=== PATIENT | female | born 1985 | race African-American/Black ===

== ENCOUNTER 2020-09-07 21:22 | Emergency (ER) | payer OTHER, MEDICARE, MEDICAID, SELFPAY ==
--- NOTE | ~2020-09-07 | CT_ITS ---
EXAMINATION: CT abdomen pelvis wo con DATE: 09/08/2020 00:15 INDICATION: Abdominal pain, body aches, cough, 103 degrees fever TECHNIQUE: Computed tomography (CT) of the abdomen and pelvis was performed without intravenous contr ast. Automated exposure control and iterative reconstruction technique were employed. Exam dose: 150 1.22 mGy-cm total exam DLP. COMPARISON: None. FINDINGS: The lung bases are clear of consolidation. Normal heart size. No pericardial or pleural eff usion. There is mild abdominal and pelvic ascites. There is a peritoneal catheter. The liver, gallbladder, bile ducts, spleen, pancreas, pancreatic duct and adrenal glands are unremark able. Diffuse bilateral prominent renal atrophy. No renal mass lesion or urinary tract calculus or hy droureteronephrosis. The uterus and adnexal areas and urinary bladder is unremarkable. No evidence of appendicitis. No bowel obstruction, bowel wall thickening, pneumatosis or intraperiton eal free air. Degenerative changes of the lower thoracic and to a lesser extent lumbar spine. IMPRESSION: Peritoneal catheter presumably for peritoneal dialysis. Mild ascites. Prominent diffuse bilateral renal atrophy Reviewed, dictated and finalized at [facility]. Reviewed, dictated and finalized at [facility]. TER MIRROR IMPRESSION: Peritoneal catheter presumably for peritoneal dialysis. Mild ascit es. Prominent diffuse bilateral renal atrophy
--- NOTE | ~2020-09-07 | XR_ITS ---
EXAMINATION: XR chest 1V portable DATE: 09/07/2020 23:01 INDICATION: Cough and fever. TECHNIQUE: A single frontal view of the chest was obtained. COMPARISON: Chest single view 02/12/2018 FINDINGS: The lung volumes are normal. There are mild airspace opacities in the perihilar regions. No pleural effusion or pneumothorax. The heart size is normal. IMPRESSION: 1. Small lung volumes with mild airspace opacities in the perihilar regions, consistent with atelecta sis versus pneumonia. Reviewed, dictated and finalized at [facility]. SURG RN IMPRESSION: 1. Small lung volumes with mild airspace opacities in the perihilar regions, co nsistent with atelectasis versus pneumonia.
[2020-09-07 21:35] VITALS: BP 168/107; PULSE 98; RESP 20; TEMP 37.3; O2SAT 98
--- NOTE | 2020-09-07 23:38 | ED.GENADULT ---
HPI - General Adult General Chief complaint: Upper Respiratory Infection Stated complaint: chills, body aches, cough Time Seen by Provider: 09/07/20 23:28 Source: RN notes reviewed History of Present Illness HPI narrative: Patient presents to emergency department from home for upper respiratory infection. Patient states that approximate 1 week ago she began to have chills she states over the past 2 days she has developed a cough that is been nonproductive as well as a fever up to 103 degrees states that her last fever was 1 day ago she also states that over the past 4 days she has developed pain in her abdomen around her peritoneal dialysis site she denies any nausea vomiting does note the occasional loose stool Related Data Home Medications Medication Instructions Recorded Confirmed [id number] alafen tablet 09/07/20 [Genvoya] ergocalciferol (vitamin D2) 09/07/20 furosemide 09/07/20 sevelamer carbonate 09/07/20 Allergies Allergy/AdvReac Type Severity Reaction Status Date / Time aspirin Allergy Unknown UNKNOWN Verified 09/07/20 21:39 ciprofloxacin Allergy Unknown UNKNOWN Verified 09/07/20 21:39 RIVERA Inhibitors Allergy Swelling Verified 09/07/20 21:39 of Lip/Tongue/Throat Review of Systems Review of Systems: Narrative: Gen.: Reports fever Eyes: Denies eye pain or visual change ENT: Denies congestion Respiratory: Reports cough CV: Denies chest pain or palpitations GI: Reports abdominal pain diarrhea denies nausea vomiting reports peritoneal dialysis Musculoskeletal: Denies back pain or muscle pain Neuro: Denies numbness, tingling, weakness or focal weakness Skin: Denies rash Except as documented, all other systems reviewed and negative [facility] Past Medical History Medical History (Updated 09/08/20 @ 00:55 by Marlon Melo DO) Chronic renal failure Social History Social History (Updated 09/07/20 @ 23:39 by Marlon Melo DO) Smoking status: Never smoker Gender identity (if verbalized by the patient): Female Exam Narrative: Exam Narrative: APPEARANCE: No acute distress, nontoxic, resting in bed EYES: EOMI HEENT: Normocephalic, atraumatic, OMM RESPIRATORY: No respiratory distress Clear to auscultation bilaterally with no rhonchi wheezing or rales. CARDIOVASCULAR: Regular rate and rhythm without murmurs rubs or gallops. ABDOMINAL: Soft, nondistended peritoneal dialysis catheter in right lower quadrant with tenderness around the site no surrounding erythema no tenderness left upper quadrant left lower quadrant no rebound or guarding MUSCULOSKELETAl: Moves all extremities. No clubbing, cyanosis or edema. NEURO: Awake and alert. Following commands, speech normal, no focal deficits SKIN:: Warm, dry. No rashes lesions or abrasions PSYCHIATRIC: Normal affect/mood, Course Course Emergency Course: Reviewed x-ray and compared to CT scan lung bases clear Discussed with patient results of workup and diagnosis. Discussed need for follow-up with primary care, proper use of medication, and reasons to return to the emergency department. Patient understands and agrees to current treatment plan discussed with the patient and she has concerns of possible Covid will test for Covid at this time Vital Signs Vital signs: Vital Signs Temperature 99.1 F 09/07/20 21:35 Pulse Rate 98 09/07/20 21:35 Respiratory Rate 20 09/07/20 21:35 Blood Pressure 168/107 H 09/07/20 21:35 Pulse Oximetry 98 09/07/20 21:35 Temperature 99.1 F 09/07/20 21:35 Pulse Rate 98 09/07/20 21:35 Respiratory Rate 20 09/07/20 21:35 Blood Pressure 168/107 H 09/07/20 21:35 Pulse Oximetry 98 09/07/20 21:35 Medical Decision Making MDM Narrative Medical decision making narrative: Patient reports chills for the past week states fever last night no fever today no fever in the emergency department lab work is within normal limits UA is negative chest x-ray and CT abdomen pelvis shows no a
[2020-09-08 00:16] LABS: Add Urine Microscopic? YES; Appearance Urine Clear (Clear); Bilirubin Urine Negative (Negative); Blood Urine Negative (Negative); Color Urine Straw (Yellow); Glucose Urine UA Negative (Negative); Ketones Urine Negative (Negative); Leukocyte Esterase Ur Negative LEU/UL (Negative); Nitrate Urine Negative (Negative); Protein Urine 2+ mg/dL (Negative); Specific Grav Ur 1.011 (1.001-1.035); Squamous Epithelial Cell Urine Many /hpf (Few); Urobilinogen Urine Negative mg/dL (<2.0); WBC Urine 0-3 /hpf
[2020-09-08 00:24] LABS: Alanine Aminotransferase 16 U/L (4-35); Albumin Level 3.5 g/dL (3.5-5.1); Alkaline Phosphatase 82 U/L (38-126); Anion Gap 4 mmol/L (8-16); Aspartate Amino Transferase 26 U/L (14-36); Bilirubin,Total 0.2 mg/dL (0.2-1.3); Blood Urea Nitrogen 34 mg/dL (7-17); Calcium 7.9 mg/dL (8.4-10.2); Carbon Dioxide 29 mmol/L (22-30); Chloride 106 mmol/L (98-107); Estimated CRCL calculation 19 ml/min; Estimated Glomerular Filt Rate 10; Glucose 86 mg/dL (65-105); Potassium 3.6 mmol/L (3.4-5.0); Sodium 139 mmol/L (137-145)
[2020-09-08 00:49] LABS: Basophils Percent Auto 0.4 % (0.2-1.2); Eosinophils Absolute Auto 0.1 K/mm3 (0-0.3); Eosinophils Percent Auto 1.1 % (0-4.4); Hematocrit 35.2 % (37.0-47.0); Hemoglobin 12.1 g/dL (12.0-15.0); Immature Granulocyte Absolute 0.01 K/mm3 (0.00-0.031); Immature Granulocyte Percent A 0.2 % (0-0.5); Lymphocytes Absolute Auto 1.22 K/mm3 (0.9-3.2); Lymphocytes Percent Auto 27.1 % (18.3-44.2); Mean Corpuscular HGB Conc 34.4 g/dl (32-36); Mean Corpuscular Hemoglobin 33.9 pg (26-34); Mean Corpuscular Volume 98.6 fl (80-100); Mean Platelet Volume 8.8 fl (7.4-10.4); Monocytes Absolute Auto 0.6 K/mm3 (0.1-0.6); Monocytes Percent Auto 14.2 % (2.6-8.5); Neutrophils Absolute Auto 2.6 K/mm3 (1.3-6.7); Platelet Count Result 261 k/mm3 (150-375); Red Blood Count 3.57 M/mm3 (4.2-5.4); Red Cell Distribution Width 11.8 % (11.5-14.5); White Blood Count 4.5 K/mm3 (4.5-10.0)
[2020-09-08 01:08] VITALS: BP 153/89; PULSE 77; RESP 20; O2SAT 99
[2020-09-08 19:42] LABS: SARS-CoV-2 RNA PCR Positive
== END 2020-09-08 01:32 | disposition home or self-care (01) ==
PROVIDERS: Emergency Provider Emergency Medicine
DX: U07.1 COVID-19 (principal); R91.8 Other nonspecific abnormal finding of lung field
CPT/HCPCS: 36415; 71045; 74176; 80053; 81001; 85025; 99284; C9803; U0003; U0005

== ENCOUNTER 2022-02-09 00:31 | Emergency (ER) | payer OTHER, SELFPAY ==
--- NOTE | ~2022-02-09 | XR_ITS ---
EXAMINATION: XR chest 2V DATE: 02/09/2022 01:26 INDICATION: Weakness TECHNIQUE: frontal and lateral views of the chest were obtained. COMPARISON: Chest radiograph dated 09/07/2020 FINDINGS: Gas-filled stomach underlying the chronically elevated left hemidiaphragm. No focal airspace opacitie s, pulmonary edema, pleural effusion or pneumothorax. The cardiomediastinal silhouette is normal. Chr onic mild anterior wedging of a few lower thoracic vertebral bodies. IMPRESSION: 1. Chronic elevation of the left hemidiaphragm. No acute cardiopulmonary disease. Reviewed, dictated and finalized at [facility]. IMPRESSION: 1. Chronic elevation of the left hemidiaphragm. No acute cardiopulmonary diseas e.
[2022-02-09 00:30] VITALS: BP 154/79; PULSE 120; RESP 15; TEMP 37.4; O2SAT 95
[2022-02-09 00:40] VITALS: BP 154/79; PULSE 116; RESP 20; O2SAT 96
--- NOTE | 2022-02-09 00:41 | ECG_ITS ---
Measurements Intervals Ophelia Rate: 119 P: 53 NJ: 162 QRS: -3 QRSD: 71 T: 60 QT: 306 QTc: 431 Interpretive Statements SINUS TACHYCARDIA POSSIBLE LEFT ATRIAL ENLARGEMENT ABNORMAL ECG Electronically Signed On 02-09-2022 8:07:34 CDT by Nelson Cary D.O.
--- NOTE | 2022-02-09 00:43 | ED.ANXIETY ---
HPI - Anxiety General Chief Complaint: Anxiety Stated Complaint: ate an edible and feels weird History of Present Illness HPI narrative: 36-year-old female with a history of end-stage renal disease and hypertension presents to the emergency room for evaluation of feeling weird after ingesting an edible and smoking some marginal wall. Patient has a history of peritoneal dialysis, which she manages at home.. Patient says approximately he 930 this evening she ingested a THC edible and 2 hours later she began to feel weird . Also noticed some palpitations and both of her legs began to swell. Patient denies any changes to her dialysate. Denies any shortness of breath or difficulty breathing. Denies chest pain. Related Data Home Medications Medication Instructions Recorded Confirmed elviteg 150 mg-cob 150 mg-emtricit tablet 09/07/20 200 mg-tenofo alafenam 10 mg tablet (Genvoya) ergocalciferol (vitamin D2) 1,250 09/07/20 mcg (50,000 unit) capsule furosemide 40 mg tablet 09/07/20 sevelamer carbonate 800 mg tablet 09/07/20 Allergies Allergy/AdvReac Type Severity Reaction Status Date / Time aspirin Allergy Unknown UNKNOWN Verified 09/07/20 21:39 ciprofloxacin Allergy Unknown UNKNOWN Verified 09/07/20 21:39 RIVERA Inhibitors Allergy Swelling Verified 09/07/20 21:39 of Lip/Tongue/Throat Review of Systems Review of Systems: CONSTITUTIONAL: Denies fever, chills, or sweats. EYES: Denies visual changes, redness, or discharge. ENT: Denies rhinorrhea, congestion, sore throat, or otalgia. CARDIOVASCULAR: Reports palpitations, lower extremity edema RESPIRATORY: Denies cough or dyspnea. GASTROINTESTINAL: Denies abdominal pain, nausea, vomiting, or diarrhea. GENITOURINARY: Denies dysuria or hematuria. SKIN: Denies rash or itching. MUSCULOSKELETAL: Denies back pain, joint pain, or myalgia. NEUROLOGIC: Denies headache, numbness, dizziness, or weakness. PSYCHIATRIC: Denies anxiety or depression. [facility] Past Medical History Medical History Chronic renal failure Social History Social History Smoking status: Never smoker Gender identity (if verbalized by the patient): Female Exam Narrative: GENERAL: Well-appearing, well-nourished, no physical limitations, and in no acute distress. HEAD: Normocephalic, atraumatic. EYES: Conjunctivae normal, PERRLA and EOMI. NECK: Supple. No adenopathy or masses. CHEST: Clear to auscultation. No respiratory distress. No wheezes rales or rhonchi. No tenderness. HEART: Regular rate and rhythm. No murmur heard. Normal peripheral pulses. ABDOMEN: Soft, nontender, morbidly obese, normal active bowel sounds. Peritoneal dialysis catheter EXTREMITIES: Normal range of motion. Nonpitting lower extremity edema. No clubbing or cyanosis SKIN: Warm, dry, no rash. No noted wounds NEURO: No focal deficits. Alert and oriented x3. MAEW. CN's II-XI intact bilaterally, normal gait PSYCH: Cooperative. Normal mood and affect. Course Vital Signs Vital signs: Vital Signs Temperature 37.4 C 02/09/22 00:30 Pulse Rate 120 H 02/09/22 00:30 Respiratory Rate 15 02/09/22 00:30 Blood Pressure 154/79 H 02/09/22 00:30 Pulse Oximetry 95 02/09/22 00:30 Oxygen Delivery Room Air 02/09/22 00:30 Temperature 37.4 C 02/09/22 00:30 Pulse Rate 105 H 02/09/22 01:30 Respiratory Rate 20 02/09/22 01:30 Blood Pressure 154/79 H 02/09/22 00:40 Pulse Oximetry 97 02/09/22 01:30 Oxygen Delivery Room Air 02/09/22 00:46 MDM - Anxiety Lab Data Result diagrams: 02/09/22 00:48 02/09/22 00:48 Labs: Lab Results 02/09/22 02/09/22 02/09/22 Range/Units 00:48 00:48 01:42 WBC 8.9 (4.5-10.0) K/mm3 RBC 3.36 L (4.2-5.4) M/mm3 Hgb 11.1 L (12.0-15.0) g/dL Hct 32.5 L (37.0-47.0) % MCV 96.7 (80-100) fl MCH 33.0
[2022-02-09 00:55] LABS: Basophils Percent Auto 0.3 % (0.2-1.2); Eosinophils Absolute Auto 0.4 K/mm3 (0-0.3); Eosinophils Percent Auto 3.9 % (0-4.4); Hematocrit 32.5 % (37.0-47.0); Hemoglobin 11.1 g/dL (12.0-15.0); Immature Granulocyte Absolute 0.02 K/mm3 (0.00-0.031); Immature Granulocyte Percent A 0.2 % (0-0.5); Lymphocytes Absolute Auto 2.53 K/mm3 (0.9-3.2); Lymphocytes Percent Auto 28.4 % (18.3-44.2); Mean Corpuscular HGB Conc 34.2 g/dl (32-36); Mean Corpuscular Volume 96.7 fl (80-100); Mean Platelet Volume 8.3 fl (7.4-10.4); Monocytes Absolute Auto 0.6 K/mm3 (0.1-0.6); Monocytes Percent Auto 6.7 % (2.6-8.5); Neutrophils Absolute Auto 5.4 K/mm3 (1.3-6.7); Neutrophils Percent Auto 60.5 % (45.5-73.1); Platelet Count Result 308 k/mm3 (150-375); Red Blood Count 3.36 M/mm3 (4.2-5.4); Red Cell Distribution Width 13.1 % (11.5-14.5); White Blood Count 8.9 K/mm3 (4.5-10.0)
[2022-02-09 01:07] LABS: Alanine Aminotransferase 16 U/L (6-35); Albumin Level 3.9 g/dL (3.5-5.1); Alkaline Phosphatase 87 U/L (38-126); Anion Gap 13 mmol/L (8-16); Aspartate Amino Transferase 24 U/L (14-36); Bilirubin,Total 0.4 mg/dL (0.2-1.3); Blood Urea Nitrogen 64 mg/dL (7-17); Calcium 8.5 mg/dL (8.4-10.2); Carbon Dioxide 21 mmol/L (22-30); Chloride 104 mmol/L (98-107); Estimated CRCL calculation 11 ml/min; Estimated Glomerular Filt Rate 5; Glucose 109 mg/dL (65-110); Lipase 74 U/L (23-300); Potassium 3.6 mmol/L (3.4-5.0); Sodium 138 mmol/L (137-145)
[2022-02-09 01:19] LABS: NT Pro B Type Natriuretic Pept 1230 pg/mL (5-100); Troponin I 0.013 ng/mL (0.000-0.034)
--- NOTE | 2022-02-09 01:26 | PC.NURSE ---
PT has peritoneal dialysis access noted. Dsg per pt done at home no s/s of infection (drainage, increased edema)
[2022-02-09 01:30] VITALS: PULSE 105; RESP 20; O2SAT 97
[2022-02-09 01:52] LABS: Appearance Urine Clear (Clear); Bilirubin Urine Negative (Negative); Blood Urine 2+ (Negative); Color Urine Yellow (Yellow); Glucose Urine UA Negative (Negative); Ketones Urine Negative (Negative); Leukocyte Esterase Ur 3+ LEU/UL (Negative); Nitrate Urine Negative (Negative); Protein Urine 2+ mg/dL (Negative); Specific Grav Ur 1.015 (1.001-1.035); Urobilinogen Urine 0.2 mg/dL (<2.0)
[2022-02-09 02:01] LABS: Bacteria Urine Trace /hpf; Mucus Urine Rare /lpf; Squamous Epithelial Cell Urine Many /hpf (Few); WBC Urine 21-30 /hpf
[2022-02-09 02:07] LABS: Amphetamine Screen Urine Negative (Negative); Barbiturate Screen Urine Negative (Negative); Benzodiazepines Screen Urine Negative (Negative); Cannabinoid Screen Urine Positive (Negative); Cocaine Screen Urine Negative (Negative); Methadone Screen Urine Negative (Negative); Opiate Screen Urine Negative (Negative); Phencyclidine Screen Urine Negative (Negative)
[2022-02-09 02:15] LABS: Add Urine Microscopic? YES
== END 2022-02-09 02:28 | disposition home or self-care (01) ==
PROVIDERS: Emergency Provider Nurse Practitioner Family
DX: F41.9 Anxiety disorder, unspecified (principal); N39.0 Urinary tract infection, site not specified; T40.711A Poisoning by cannabis, accidental (unintentional), initial encounter; I12.0 Hypertensive chronic kidney disease with stage 5 chronic kidney disease or end stage renal disease; N18.6 End stage renal disease; Z99.2 Dependence on renal dialysis
CPT/HCPCS: 36415; 71046; 80053; 80307; 81001; 83690; 83880; 84484; 85025; 87086; 87088; 93005; 99284

== ENCOUNTER 2022-06-29 21:52 | Inpatient (IN) | payer OTHER, SELFPAY ==
--- NOTE | ~2022-06-29 | US_ITS ---
Duplex Sonography of the bilateral lower extremities: Indication: Edema Sagittal and transverse B-mode images as well as color-flow imaging were performed on the right and l eft femoral and popliteal veins. B-mode examination was done without and with compression in the tra nsverse plane. There is good visualization of the bilateral common femoral, proximal profunda femora l, superficial femoral, greater saphenous, and popliteal veins. Normal flow was seen on color-flow im aging. Normal compressibility was demonstrated. Impression: No evidence of deep vein thrombosis involving the bilateral femoral, greater saphenous, s uperficial femoral, or popliteal veins. Reviewed, dictated and finalized at location . RMATION ANALYST Impression: No evidence of deep vein thrombosis involving the bilateral femoral , greater saphenous, superficial femoral, or popliteal veins.
--- NOTE | ~2022-06-29 | CT_ITS ---
EXAMINATION: CT abdomen pelvis wo con DATE: 06/30/2022 07:31 INDICATION: Generalized abdominal pain. TECHNIQUE: Computed tomography (CT) of the abdomen and pelvis was performed without intravenous contr ast. Automated exposure control and iterative reconstruction technique were employed. The dose-length product was 1558.15 mGy-cm. COMPARISON: CT abdomen and pelvis 09/08/2020 FINDINGS: The visualized portions of the lung bases demonstrate mild atelectasis. No pleural effusion . The heart size is normal. No pericardial effusion. The liver, gallbladder, spleen, pancreas, adrena l glands are normal. There is moderate atrophy of the kidneys. A peritoneal dialysis catheter is note d. There are no dilated loops of bowel. The appendix is normal. There are no pathologically enlarged lymph nodes. There is physiologic fluid in the pelvis. There is a tampon in the vagina. There is mild thoracolumbar spondylosis. IMPRESSION: 1. No etiology for the patient's symptoms. Reviewed, dictated and finalized at location [facility]. S AND LEASING CONSULTANT
[2022-06-29 21:58] VITALS: BP 137/63; PULSE 102; RESP 24; TEMP 37.3; O2SAT 100
[2022-06-30] VITALS (9 sets, daily range): BP systolic 115–161; BP diastolic 59–87; PULSE 73–92; RESP 18–25; TEMP 36.7–37.3; O2SAT 98–100
[2022-06-30 06:09] LABS: Basophils Percent Auto 0.4 % (0.2-1.2); Eosinophils Absolute Auto 0.2 K/mm3 (0-0.3); Eosinophils Percent Auto 2.4 % (0-4.4); Hematocrit 27.8 % (37.0-47.0); Hemoglobin 9.6 g/dL (12.0-15.0); Immature Granulocyte Absolute 0.01 K/mm3 (0.00-0.031); Immature Granulocyte Percent A 0.1 % (0-0.5); Lymphocytes Absolute Auto 1.65 K/mm3 (0.9-3.2); Lymphocytes Percent Auto 24.6 % (18.3-44.2); Mean Corpuscular HGB Conc 34.5 g/dl (32-36); Mean Corpuscular Hemoglobin 32.3 pg (26-34); Mean Corpuscular Volume 93.6 fl (80-100); Mean Platelet Volume 8.4 fl (7.4-10.4); Monocytes Absolute Auto 0.7 K/mm3 (0.1-0.6); Neutrophils Absolute Auto 4.2 K/mm3 (1.3-6.7); Neutrophils Percent Auto 62.5 % (45.5-73.1); Platelet Count Result 235 k/mm3 (150-375); Red Blood Count 2.97 M/mm3 (4.2-5.4); Red Cell Distribution Width 13.9 % (11.5-14.5); White Blood Count 6.7 K/mm3 (4.5-10.0)
--- NOTE | 2022-06-30 06:10 | ED.ABDPAIN ---
HPI - Abdominal Pain General Chief Complaint: Abdominal Pain Stated Complaint: painful dialysis site Time Seen by Provider: 06/30/22 05:39 History of Present Illness HPI narrative: Patient is a 36-year-old female who presents ER with diffuse abdominal pain. Began at 9:30 PM on 06/29/2022 during her dialysis. Contacted her dialysis nurse who told her to stop her dialysis and come to the ER. No fevers or chills or sweats. Diffuse pain worse with any type of movement. No nausea or vomiting or diarrhea. She still makes urine has no dysuria. Patient reports she started having cloudiness to her dialysis fluid day prior to her pain and it continues to be cloudy at this time. No history of SBP. Her it project lead is Dr. Swan in [place]. Related Data Home Medications Medication Instructions Recorded Confirmed elviteg 150 mg-cob 150 mg-emtricit 1 tablet PO DAILY 09/07/20 06/30/22 200 mg-tenofo alafenam 10 mg tablet (Genvoya) ergocalciferol (vitamin D2) 1,250 1,250 mcg PO MONTHLY 09/07/20 06/30/22 mcg (50,000 unit) capsule furosemide 40 mg tablet (Lasix) 40 mg PO DAILY 09/07/20 06/30/22 sevelamer carbonate 800 mg tablet 800 mg PO TIDWM 09/07/20 06/30/22 amlodipine 10 mg tablet 10 mg PO DAILY 06/30/22 06/30/22 calcitriol 0.5 mcg capsule 0.5 mcg PO DAILY 06/30/22 06/30/22 Allergies Allergy/AdvReac Type Severity Reaction Status Date / Time aspirin Allergy Unknown UNKNOWN Verified 06/30/22 16:07 ciprofloxacin Allergy Unknown UNKNOWN Verified 06/30/22 16:07 RIVERA Inhibitors Allergy Swelling Verified 06/30/22 16:07 of Lip/Tongue/Throat Review of Systems Review of Systems: All systems reviewed & are unremarkable except as noted in HPI and below Constitutional: Constitutional: Denies chills, Denies fatigue and Denies fever(s) ENT: Denies nasal congestion and Denies sore throat Cardiovascular: Cardiovascular: Denies chest pain, Denies rapid heart rate and Denies radiating jaw, neck or arm pain Respiratory: Respiratory: Denies cough and Denies dyspnea Gastrointestinal: Gastrointestinal: Reports abdominal pain, Denies diarrhea, Denies nausea and Denies vomiting Genitourinary: Genitourinary: Denies dysuria PMFSH Past Medical History Medical History (Updated 06/30/22 @ 09:14 by Pedro Hyde MD) Chronic renal failure End stage renal disease End stage renal disease Erythropoietin deficiency anemia Hypertension Hypertension Metabolic acidosis Peritoneal dialysis catheter in place Peritonitis associated with continuous ambulatory peritoneal dialysis Renal osteodystrophy Social History Social History Smoking status: Never smoker Alcohol intake: never Substance use: never Substance use type: does not use Lack of Transportation: No Lack of Food: Never True Current Housing: I Have Housing Concerned About Future Housing: No Difficulty Paying Gas/Electric Bills: No Difficulty Paying for Meds: No Currently Unemployed: No Education: Don't Know Difficulty w/ Childcare or Family Care: No Gender identity (if verbalized by the patient): Female Spiritual care concerns: No Exam Narrative: GENERAL: Unremarkable-appearing, well-nourished, and in mild distress. HEAD: Normocephalic, atraumatic. EYES: PERRL and EOMI. ENT: Mucous membranes moist. CHEST: Clear to auscultation. No respiratory distress. HEART: Regular rate and rhythm. Normal peripheral pulses. ABDOMEN: Soft, diffuse tenderness with guarding, normal-appearing dialysis site but catheter has some dried blood within it, nondistended, normal active bowel sounds. EXTREMITIES: Normal range of motion. No edema. SKIN: Warm, dry, no rash. NEURO: Alert and oriented x3. PSYCH: Normal mood and affect. Course Course Emergency Course: Dr. Hyde consulted. Admit to hospitalist service. Vital Signs Vital signs: Vital Signs Temperature 99.2 F 06/29/22 21:58 P
[2022-06-30 06:18] LABS: Lactic Acid Reflex 0.6 mmol/L (0.7-2.0)
[2022-06-30 06:19] LABS: Alanine Aminotransferase 22 U/L (6-35); Albumin Level 3.7 g/dL (3.5-5.1); Alkaline Phosphatase 64 U/L (38-126); Anion Gap 7 mmol/L (8-16); Aspartate Amino Transferase 28 U/L (14-36); Bilirubin,Total 0.4 mg/dL (0.2-1.3); Blood Urea Nitrogen 67 mg/dL (7-17); Calcium 8.3 mg/dL (8.4-10.2); Carbon Dioxide 21 mmol/L (22-30); Chloride 108 mmol/L (98-107); Estimated CRCL calculation 11 ml/min; Estimated Glomerular Filt Rate 6; Glucose 98 mg/dL (65-110); Lipase 119 U/L (23-300); Potassium 4.4 mmol/L (3.4-5.0); Sodium 136 mmol/L (137-145)
[2022-06-30] MEDS: MORPHINE SULFATE (*CRX) 4 MG/ML INJ IV PUSH (06:37)
[2022-06-30 06:57] LABS: Add Urine Microscopic? YES; Appearance Urine Slightly Cloudy (Clear); Bilirubin Urine Negative (Negative); Blood Urine 1+ (Negative); Color Urine Light Yellow (Yellow); Glucose Urine UA Trace mg/dL (Negative); Ketones Urine Negative (Negative); Leukocyte Esterase Ur 1+ LEU/UL (Negative); Nitrate Urine Negative (Negative); Protein Urine 1+ mg/dL (Negative); Specific Grav Ur 1.015 (1.001-1.035); Urobilinogen Urine 0.2 mg/dL (<2.0)
[2022-06-30 07:01] LABS: Bacteria Urine Trace /hpf; Mucus Urine Rare /lpf; Squamous Epithelial Cell Urine Few /hpf (Few); WBC Urine 31-50 /hpf
--- NOTE | 2022-06-30 07:16 | PC.NURSE ---
Report given to LENNOX Ríos.
[2022-06-30 07:54] LABS: Appearance Peritoneal Fluid Bloody (Clear); Color Peritoneal Fluid Red (Colorless); Source Peritoneal Fluid Peritoneal Fluid
[2022-06-30 07:55] LABS: Nucleated Cells Peritoneal Flu 21680 /uL (0-500)
[2022-06-30 08:02] LABS: Lymphocytes Peritoneal Fluid 11 %; Monocytes Peritoneal Fluid 2 %; Neutrophils Peritoneal Fluid 87 % (0-25)
[2022-06-30] MEDS: HYDROmorphone HCL INJ (*CRX) 1 MG/ML SYR IV PUSH ×2 (08:14→13:41)
--- NOTE | 2022-06-30 08:20 | PM.CNNEP ---
Assessment and Plan Assessment and plan (1) End stage renal disease: Code(s): N18.6 - End stage renal disease Status: Acute Assessment and Plan: the patient has end-stage renal disease. This is most likely due to hypertension. she sees Dr. Swan she will get peritoneal dialysis this evening. (2) Erythropoietin deficiency anemia: Code(s): D63.1 - Anemia in chronic kidney disease Status: Acute Assessment and Plan: The patient has hemoglobin of 9.6. Will give Epogen. (3) Renal osteodystrophy: Code(s): N25.0 - Renal osteodystrophy Status: Acute Assessment and Plan: Will check a phosphorus level in the morning (4) Peritonitis associated with continuous ambulatory peritoneal dialysis: Code(s): T80.89XA - Other complications following infusion, transfusion and therapeutic injection, initial encounter; K65.9 - Peritonitis, unspecified; Z99.2 - Dependence on renal dialysis Status: Acute Assessment and Plan: the patient has peritonitis. Has a cloudy bag. Her contamination was probably on Thursday. She had a fever yesterday which is unusual. I asked the ER doctor to check CT scan to make sure there is nothing else going on. Other possibilities include some sort of GI process such as gallbladder, appendix, colitis etc. However these come with localized pain generally. She will get IV antibiotics. If cultures come back negative then we can switch to intraperitoneal antibiotics. (5) Hypertension: Code(s): I10 - Essential (primary) hypertension Status: Acute Assessment and Plan: Blood pressure is a bit high right now. This may improve with pain control. (6) Metabolic acidosis: Code(s): E87.20 - Acidosis, unspecified Status: Acute Assessment and Plan: her bicarb is a little bit low. Will give oral bicarb History of Present Illness Reason for Consult Consult date: 06/30/22 Chief Complaint Chief complaint: painful dialysis site History of Present Illness Narrative: China Bustos is a very pleasant 36-year-old lady who has multiple medical problems including hypertension, stroke, heart attack, end-stage renal disease on peritoneal dialysis for about 3 years, vitamin-D deficiency, renal osteodystrophy, anemia of chronic kidney disease. The patient seen by Dr. Swan at [facility] with PD nurse igor. The patient did well until last Thursday when she got up out of bed and her dialysis catheter got stuck on her bed post and pulled out. She went to the nurse that day and had a new transfer set placed. She received some antibiotics for that. She did well on Thursday through Thursday with clear fluid and no belly pain. yesterday afternoon she had a fever of 102.5. Yesterday evening when she was on dialysis she developed belly pain and cloudy fluid. She called the PD nurse who told her to come to the emergency room. She was seen here. The patient was able to take a sample of fluid off so they sent it for culture and cell count. she denies any cough skin rash diarrhea nausea vomiting chest pain shortness of breath sinus issues. She does not smoke or drink. Review of Systems Constitutional: Constitutional: Reports no additional constitutional complaints Eyes: Eyes: Reports no additional eye complaints ENT: Reports system reviewed and no additional complaints, except as documented Cardiovascular: Cardiovascular: Reports no additional cardiovascular complaints Respiratory: Respiratory: Reports no additional respiratory complaints Gastrointestinal: Gastrointestinal: Reports no additional gastrointestinal complaints Genitourinary: Genitourinary: Reports no additional female genitourinary complaints Musculoskeletal: Musculoskeletal: Reports no additional musculoskeletal complaints Integumentary/Breasts: Skin/Breast: Reports system reviewed and no additional complaints, except as docu Ne
[2022-06-30 08:37] LABS: Influenza A QL RT-PCR Negative (Negative); Influenza B QL RT-PCR Negative (Negative); SARS-CoV-2 RNA PCR Negative
--- NOTE | 2022-06-30 09:15 | P.PNCROSS_ITS ---
Event Note Event Note Event Note: patient is on peritoneal dialysis. She is tolerating it well. she has the cl oudy fluid. Will continue peritoneal dialysis tonight. She was seen at 8:00 a.m.
--- NOTE | 2022-06-30 09:52 | PC.NURSE ---
breakfast and lunch ordered with food and nutrition. [employer] tech
--- NOTE | 2022-06-30 11:04 | PC.NURSE ---
Attempted call dialysis nurse, no answer
[2022-06-30] MEDS: EPOETIN ALFA-EPBX 10,000 UNITS/ML VIAL 10000 UNITS SUB-Q (11:26)
--- NOTE | 2022-06-30 11:33 | PC.NURSE ---
Pt ambulated to the bathroom with standby assistance
--- NOTE | 2022-06-30 12:32 | PC.NURSE ---
[facility] called at this time. They state that the dialysis nurse will call me back
--- NOTE | 2022-06-30 13:15 | PM.IMHP ---
H&P: HPI History of Present Illness Date/Time: 06/30/22 13:15 Chief Complaint: Abdominal pain. Narrative: This is a pleasant 36-year-old female with reported history of stroke, [place], end-stage renal disease on peritoneal dialysis, anemia, hypertension, and HIV who presented to the ED via EMS from home for evaluation of abdominal pain. Last week her dialysis catheter got stuck on her bed post and was dislodged. She saw the PD nurse that day and had a new transfer set was placed and she was started on antibiotics. She did find there after every yesterday afternoon she developed a temperature to 102.3? and last evening while on dialysis she noticed that her fluid was cloudy and she began having diffuse abdominal cramping pain when filling. She is being admitted in this setting for IV antibiotics pending culture of peritoneal fluid. She had an upper respiratory infection around Thanksgiving time but that has since resolved and she has not had any recent illnesses. She specifically denies runny nose, sinus congestion, sore throat, cough, nausea, vomiting, diarrhea, and dysuria. Review of Systems Review of Systems: Twelve systems were reviewed and are negative except for as per HPI. [facility] Past Medical History Medical History (Updated 06/30/22 @ 21:12 by Viola Haddad PA-C) Cerebrovascular accident End-stage renal disease on peritoneal dialysis Erythropoietin deficiency anemia Human immunodeficiency virus Hypertension Myocardial infarction Renal osteodystrophy Surgical History Surgical History (Updated 06/30/22 @ 21:12 by Viola Haddad PA-C) Peritoneal dialysis catheter in place Family History Family History (Updated 06/30/22 @ 21:12 by Viola Haddad PA-C) Other Hypertension Social History Social History (Updated 06/30/22 @ 21:13 by Viola Haddad PA-C) Social History: Surrogate medical decision maker: Faustina Weston, mother. Code status: Full code. Smoking status: Never smoker Alcohol intake: never Substance use: current Substance use type: marijuana Lack of Transportation: No Lack of Food: Never True Current Housing: I Have Housing Concerned About Future Housing: No Difficulty Paying Gas/Electric Bills: No Difficulty Paying for Meds: No Currently Unemployed: No Education: Don't Know Difficulty w/ Childcare or Family Care: No Additional occupation/education comments: Office work. Spiritual care concerns: No Meds Home Medications and Allergies Home Medications Medication Instructions Recorded Confirmed Type elviteg 150 mg-cob 150 mg-emtricit 1 tablet PO DAILY 09/07/20 06/30/22 History 200 mg-tenofo alafenam 10 mg tablet (Genvoya) ergocalciferol (vitamin D2) 1,250 1,250 mcg PO MONTHLY 09/07/20 06/30/22 History mcg (50,000 unit) capsule furosemide 40 mg tablet (Lasix) 40 mg PO DAILY 09/07/20 06/30/22 History sevelamer carbonate 800 mg tablet 800 mg PO TIDWM 09/07/20 06/30/22 History amlodipine 10 mg tablet 10 mg PO DAILY 06/30/22 06/30/22 History calcitriol 0.5 mcg capsule 0.5 mcg PO DAILY 06/30/22 06/30/22 History Allergies Allergy/AdvReac Type Severity Reaction Status Date / Time aspirin Allergy Unknown UNKNOWN Verified 06/30/22 16:07 ciprofloxacin Allergy Unknown UNKNOWN Verified 06/30/22 16:07 RIVERA Inhibitors Allergy Swelling Verified 06/30/22 16:07 of Lip/Tongue/Throat Vital Signs Vital Signs - 24 hr 06/29/22 21:58 06/30/22 05:34 06/30/22 07:36 Temperature 99.2 F Pulse Rate 102 H 92 88 Respiratory Rate 24 H 25 H 18 Blood Pressure 137/63 156/79 H Pulse Oximetry 100 100 100 Oxygen Delivery Room Air 06/30/22 09:14 06/30/22 11:28 06/30/22 13:42 Temperature Pulse Rate 89 88 81 Respiratory Rate 18 18 18 Blood Pressure 161/76 H 145/87 H 130/85 Pulse Oximetry 98 100 99 Oxygen Delivery Exam Const: Other: Well-developed, nontoxic-appearing female sitting up in bed. Weight: 141 kilograms.
--- NOTE | 2022-06-30 15:22 | PC.NURSE ---
called nandini back and they state she will call patrick again and have her call me
--- NOTE | 2022-06-30 15:43 | PC.NURSE ---
Dialysis nurse called back and states that she is in the building and will take care of patient
--- NOTE | 2022-06-30 16:05 | ADMGEN ---
This patient, China Weston, was admitted to Medical Room 253-01. Patient/family oriented to hospital policies and general routines including ID bracelet, bed and alarms, visiting hours, pain management, procedures, bathroom and other care routines, personal items, smoking policy, room service/diet, and visiting hours. Information on how to activate the Rapid Response Team has been discussed. Patient/Family are encouraged to report perceived risks to care and to ask questions if they do not understand what they are told or what they should do.
[2022-06-30] MEDS: HYDROcodone/acetaminophen (*CRX) 5-325 MG TABLET 1 TAB PO (20:52)
[2022-06-30] MEDS: SODIUM BICARBONATE TAB 650 MG TABLET 1300 MG PO (21:38)
[2022-07-01] VITALS (9 sets, daily range): BP systolic 112–134; BP diastolic 57–78; PULSE 80–97; RESP 16–20; TEMP 36.1–36.7; O2SAT 96–99
[2022-07-01] MEDS: HYDROmorphone HCL INJ (*CRX) 1 MG/ML SYR IV PUSH ×3 (04:49→16:37)
[2022-07-01 05:30] LABS: Hemoglobin 9.5 g/dL (12.0-15.0); Mean Corpuscular HGB Conc 33.9 g/dl (32-36); Mean Corpuscular Hemoglobin 32.3 pg (26-34); Mean Corpuscular Volume 95.2 fl (80-100); Mean Platelet Volume 8.5 fl (7.4-10.4); Platelet Count Result 232 k/mm3 (150-375); Red Blood Count 2.94 M/mm3 (4.2-5.4); Red Cell Distribution Width 13.4 % (11.5-14.5); White Blood Count 4.2 K/mm3 (4.5-10.0)
[2022-07-01 05:35] LABS: Albumin Level 3.5 g/dL (3.5-5.1); Anion Gap 7 mmol/L (8-16); Blood Urea Nitrogen 56 mg/dL (7-17); Carbon Dioxide 24 mmol/L (22-30); Chloride 103 mmol/L (98-107); Estimated CRCL calculation 13 ml/min; Estimated Glomerular Filt Rate 6; Glucose 116 mg/dL (65-110); Phosphorus 6.2 mg/dL (2.5-4.5); Potassium 3.9 mmol/L (3.4-5.0); Sodium 134 mmol/L (137-145)
[2022-07-01] MEDS: SEVELAMER CARBONATE 800 MG TABLET PO ×3 (09:01→17:25)
[2022-07-01] MEDS: amLODIPine BESYLATE 5 MG TABLET 10 MG PO (09:01)
[2022-07-01] MEDS: FUROSEMIDE 40 MG TABLET PO (09:01)
[2022-07-01] MEDS: SODIUM BICARBONATE TAB 650 MG TABLET 1300 MG PO ×2 (09:01→17:25)
[2022-07-01] MEDS: ERGOCALCIFEROL 50,000 UNITS CAPSULE 50000 UNITS PO (09:02)
[2022-07-01] MEDS: calcitrioL 0.25 MCG CAPSULE 0.5 MCG PO (09:02)
--- NOTE | 2022-07-01 09:02 | PM.PNNEP ---
Progress Note: A&P Assessment and Plan (1) End stage renal disease: Code(s): N18.6 - End stage renal disease Status: Acute Assessment and Plan: on PD. continue green bags. volume status looks okay potassium is fine (2) Erythropoietin deficiency anemia: Code(s): D63.1 - Anemia in chronic kidney disease Status: Acute Assessment and Plan: hb 9.5. she is on epo no need for iron since infected. (3) Renal osteodystrophy: Code(s): N25.0 - Renal osteodystrophy Status: Acute Assessment and Plan: phos is a bit high. follow this while here on sevelamer 800 tidwm (4) Peritonitis associated with continuous ambulatory peritoneal dialysis: Code(s): T80.89XA - Other complications following infusion, transfusion and therapeutic injection, initial encounter; K65.9 - Peritonitis, unspecified; Z99.2 - Dependence on renal dialysis Status: Acute Assessment and Plan: still has pain but [place] [address] neg for orgs. await culture on fortaz and vanco (5) Hypertension: Code(s): I10 - Essential (primary) hypertension Status: Acute Assessment and Plan: under good control. (6) Metabolic acidosis: Code(s): E87.20 - Acidosis, unspecified Status: Acute Assessment and Plan: CO2 24 now Subjective Date/time seen: 07/01/22 09:02 Interval history: patient has pain but it is better. no cp or sob fluid is cloudy and some blood present. no clots Review of Systems Cardiovascular: Cardiovascular: Reports no additional cardiovascular complaints Respiratory: Respiratory: Reports no additional respiratory complaints Gastrointestinal: Gastrointestinal: Reports no additional gastrointestinal complaints Genitourinary: Genitourinary: Reports no additional female genitourinary complaints Exam Narrative: WDWN in NAD skin no rash head ncat lungs clear cor reg no rub abd BS+ tender diffusely ext no edema. Objective Data Vital Signs Vital Signs: Vital Signs - 24 hr 06/30/22 09:14 06/30/22 11:28 06/30/22 13:42 Temperature Pulse Rate 89 88 81 Respiratory Rate 18 18 18 Blood Pressure 161/76 H 145/87 H 130/85 Pulse Oximetry 98 100 99 Oxygen Delivery 06/30/22 16:15 06/30/22 18:43 06/30/22 20:00 Temperature 98.0 F 98.3 F Pulse Rate 88 73 Respiratory Rate 18 20 Blood Pressure 139/75 115/59 L Pulse Oximetry 100 98 Oxygen Delivery Room Air 06/30/22 20:25 06/30/22 20:50 06/30/22 20:00 Temperature 98.3 F 99.2 F Pulse Rate 73 81 81 Respiratory Rate 20 18 18 Blood Pressure 115/59 L 130/85 Pulse Oximetry 98 98 Oxygen Delivery Room Air Room Air 07/01/22 00:00 07/01/22 03:24 07/01/22 03:28 Temperature 98.1 F 98.0 F 98.0 F Pulse Rate 95 87 87 Respiratory Rate 20 18 18 Blood Pressure 134/73 123/78 123/78 Pulse Oximetry 97 98 98 Oxygen Delivery 07/01/22 08:46 Temperature 98.0 F Pulse Rate 87 Respiratory Rate 18 Blood Pressure 123/78 Pulse Oximetry Oxygen Delivery Intake/Output Intake/Output: Intake & Output 06/28/22 06/29/22 06/30/22 07/01/22 23:59 23:59 23:59 23:59 Intake Total 970 2390 Output Total 448 Balance 970 1942 Meds/Results Medications: Active Medications Generic Name Dose Route Start Last Admin Trade Name Freq PRN Reason Stop Dose Admin Acetaminophen 650 mg 06/30/22 07:37 Acetaminophen 325 Mg Tablet PO Q4H PRN Mild Pain (1-3) or Fever Hydrocodone Bitart/Acetaminophen 1 tab 06/30/22 07:37 06/30/22 20:52 Hydrocodone/Acetaminophen (*Crx) 5-325 Mg Tablet PO 1 tab Q4H PRN Administration Pain Rated 4-6 Amlodipine Besylate 10 mg 07/01/22 09:00 Amlodipine Besylate 5 Mg Tablet PO DAILY [facility] Calcitriol 0.5 mcg 07/01/22 09:00 Calcitriol 0.25 Mcg Capsule PO Q48H PERLA Calcitriol 1 mcg 07/02/22 09:00 Calcitriol 0.25 Mcg Capsule PO Q48H [facility]
--- NOTE | 2022-07-01 09:45 | PM.IMPN ---
Progress Note: A&P Assessment and Plan (1) Peritonitis associated with continuous ambulatory peritoneal dialysis: Code(s): T80.89XA - Other complications following infusion, transfusion and therapeutic injection, initial encounter; K65.9 - Peritonitis, unspecified; Z99.2 - Dependence on renal dialysis Status: Acute Assessment and Plan: Complaints of nausea, vomiting, and abdominal pain Continue IV vancomycin and ceftazidime Cultures do not show any organisms per gram stain WBC stable at 4.2 Nephro on case for continued peritoneal dialysis Blood cultures pending Continue to trend labs (2) End-stage renal disease on peritoneal dialysis: Code(s): N18.6 - End stage renal disease; Z99.2 - Dependence on renal dialysis Status: Acute Assessment and Plan: Current BUN/Cr 56/8.80 Continue dialysis per nephrology Nephrology consulted Trend labs Electrolytes are balanced Avoid nephrotoxic medications (3) Metabolic acidosis: Code(s): E87.20 - Acidosis, unspecified Status: Acute Assessment and Plan: Labs more stable with CO2 on labs at 24 Oral bicarb started by nephrology Continue to trend (4) Hypertension: Code(s): I10 - Essential (primary) hypertension Status: Acute Assessment and Plan: BP is 123/78 Continue home amlodipine and furosemide Trend BP adjust therapy as indicated (5) Erythropoietin deficiency anemia: Code(s): D63.1 - Anemia in chronic kidney disease Status: Acute Assessment and Plan: Current H/H 9.5/28.0 Continue to trend labs Related to anemia of chronic disease Continue Epogen Trend H/H Transfuse as indicated (6) Human immunodeficiency virus: Code(s): B20 - Human immunodeficiency virus [HIV] disease Status: Acute Assessment and Plan: Labs are stable Continue Genvoya Plan nausea resolved since dose of Zofran Time Spent With Patient Time with patient: Greater than 35 minutes Subjective Date/time seen: 07/01/22 09:45 Interval history: 07/01/22 0945 Patient stated that she was doing okay today. She was stated that she was having some nausea today however she stated that she just got pain medicine and then was walking around up and down. She currently rates her pain a 6/10 and states it is more of a generalized abdomen. She denies any chest pain, shortness a breath, lightheadedness or dizziness. she was able to eat and currently has no other complaints. 06/30/22? 13:15 This is a pleasant 36-year-old female with reported history of stroke, [place], end-stage renal disease on peritoneal dialysis, anemia, hypertension, and HIV who presented to the ED via EMS from home for evaluation of abdominal pain. Last week her dialysis catheter got stuck on her bed post and was dislodged. She saw the PD nurse that day and had a new transfer set was placed and she was started on antibiotics. She did find there after every yesterday afternoon she developed a temperature to 102.3? and last evening while on dialysis she noticed that her fluid was cloudy and she began having diffuse abdominal cramping pain when filling. She is being admitted in this setting for IV antibiotics pending culture of peritoneal fluid. She had an upper respiratory infection around Thanksgiving time but that has since resolved and she has not had any recent illnesses. She specifically denies runny nose, sinus congestion, sore throat, cough, nausea, vomiting, diarrhea, and dysuria. Review of Systems Review of Systems: All systems reviewed & are unremarkable except as noted in HPI and below Exam Narrative: General: well-nourished, well-appearing 36-year-old female, sitting up in bed, comfortable, NARD Neuro: awake, alert and oriented x4, speech clear, no focal neuro deficits noted HEENMT: normocephalic, atraumat
--- NOTE | 2022-07-01 09:45 | P.PNIM_ITS ---
Progress Note: A&P Assessment and Plan (1) Peritonitis associated with continuous ambulatory peritoneal dialysis: Code(s): T80.89XA - Other complications following infusion, transfusion and therapeutic injection, initial encounter; K65.9 - Peritonitis, unspecified; Z99.2 - Dependence on renal dialysis Status: Acute Assessment and Plan: * Complaints of nausea, vomiting, and abdominal pain * Continue IV vancomycin and ceftazidime * Cultures do not show any organisms per gram stain * WBC stable at 4.2 * Nephro on case for continued peritoneal dialysis * Blood cultures pending * Continue to trend labs (2) End-stage renal disease on peritoneal dialysis: Code(s): N18.6 - End stage renal disease; Z99.2 - Dependence on renal dialysis Status: Acute Assessment and Plan: * Current BUN/Cr 56/8.80 * Continue dialysis per nephrology * Nephrology consulted * Trend labs * Electrolytes are balanced * Avoid nephrotoxic medications (3) Metabolic acidosis: Code(s): E87.20 - Acidosis, unspecified Status: Acute Assessment and Plan: * Labs more stable with CO2 on labs at 24 * Oral bicarb started by nephrology * Continue to trend (4) Hypertension: Code(s): I10 - Essential (primary) hypertension Status: Acute Assessment and Plan: * BP is 123/78 * Continue home amlodipine and furosemide * Trend BP * adjust therapy as indicated (5) Erythropoietin deficiency anemia: Code(s): D63.1 - Anemia in chronic kidney disease Status: Acute Assessment and Plan: * Current H/H 9.5/28.0 * Continue to trend labs * Related to anemia of chronic disease * Continue Epogen * Trend H/H * Transfuse as indicated (6) Human immunodeficiency virus: Code(s): B20 - Human immunodeficiency virus [HIV] disease Status: Acute Assessment and Plan: * Labs are stable * Continue Genvoya Plan nausea resolved since dose of Zofran Time Spent With Patient Time with patient: Greater than 35 minutes Subjective Date/time seen: 07/01/22 09:45 Interval history: 07/01/22 0945 Patient stated that she was doing okay today. She was stated that she was having some nausea today however she stated that she just got pain medicine and then was walking around up and down. She currently rates her pain a 6/10 and states it is more of a generalized abdomen. She denies any chest pain, shortness a breath, lightheadedness or dizziness. she was able to eat and currently has no other complaints. 06/30/22? 13:15 This is a pleasant 36-year-old female with reported history of stroke, [place], end- stage renal disease on peritoneal dialysis, anemia, hypertension, and HIV who presented to the ED via EMS from home for evaluation of abdominal pain. Last week her dialysis catheter got stuck on her bed post and was dislodged. She saw the PD nurse that day and had a new transfer set was placed and she was started on antibiotics. She did find there after every yesterday afternoon she developed a temperature to 102.3? and last evening while on dialysis she noticed that her fluid was cloudy and she began having diffuse abdominal cramping pain when filling. She is being admitted in this setting for IV antibiotics pending culture of peritoneal fluid. She had an upper re
[2022-07-01] MEDS: ONDANSETRON INJ 4 MG/2 ML VIAL IV PUSH (10:05)
--- NOTE | 2022-07-01 12:01 | PHAR ---
Home medications identified. Calcitriol 0.5mcg capsules, Amlodipine 10mg tablets, Genvoya 150/50/200/10 tablets. Returned to medical nursing unit
[2022-07-01 12:17] LABS: Vancomycin Random 24.1 ug/mL (10-20)
[2022-07-02] VITALS (9 sets, daily range): BP systolic 124–142; BP diastolic 71–78; PULSE 74–89; RESP 16–20; TEMP 36.1–36.8; O2SAT 96–99
[2022-07-02] MEDS: HYDROmorphone HCL INJ (*CRX) 1 MG/ML SYR IV PUSH ×2 (00:47→20:37)
[2022-07-02 06:07] LABS: Basophils Percent Auto 0.5 % (0.2-1.2); Eosinophils Absolute Auto 0.3 K/mm3 (0-0.3); Eosinophils Percent Auto 7.4 % (0-4.4); Hematocrit 28.2 % (37.0-47.0); Hemoglobin 9.7 g/dL (12.0-15.0); Immature Granulocyte Absolute 0.01 K/mm3 (0.00-0.031); Immature Granulocyte Percent A 0.2 % (0-0.5); Lymphocytes Percent Auto 32.4 % (18.3-44.2); Mean Corpuscular HGB Conc 34.4 g/dl (32-36); Mean Corpuscular Volume 95.9 fl (80-100); Mean Platelet Volume 8.5 fl (7.4-10.4); Monocytes Absolute Auto 0.5 K/mm3 (0.1-0.6); Monocytes Percent Auto 12.3 % (2.6-8.5); Neutrophils Percent Auto 47.2 % (45.5-73.1); Platelet Count Result 248 k/mm3 (150-375); Red Blood Count 2.94 M/mm3 (4.2-5.4); Red Cell Distribution Width 13.2 % (11.5-14.5); White Blood Count 4.3 K/mm3 (4.5-10.0)
[2022-07-02 06:24] LABS: Alanine Aminotransferase 15 U/L (6-35); Albumin Level 3.4 g/dL (3.5-5.1); Alkaline Phosphatase 43 U/L (38-126); Anion Gap 5 mmol/L (8-16); Aspartate Amino Transferase 17 U/L (14-36); Bilirubin,Total 0.2 mg/dL (0.2-1.3); Blood Urea Nitrogen 46 mg/dL (7-17); Carbon Dioxide 28 mmol/L (22-30); Chloride 100 mmol/L (98-107); Estimated CRCL calculation 14 ml/min; Estimated Glomerular Filt Rate 7; Glucose 102 mg/dL (65-110); Magnesium 1.9 mg/dL (1.6-2.3); Potassium 3.8 mmol/L (3.4-5.0); Sodium 133 mmol/L (137-145)
[2022-07-02] MEDS: SODIUM BICARBONATE TAB 650 MG TABLET 1300 MG PO ×2 (08:09→16:57)
[2022-07-02] MEDS: SEVELAMER CARBONATE 800 MG TABLET PO ×2 (08:09→16:58)
[2022-07-02] MEDS: FUROSEMIDE 40 MG TABLET PO (08:10)
[2022-07-02] MEDS: EPOETIN ALFA-EPBX 10,000 UNITS/ML VIAL 10000 UNITS SUB-Q (08:15)
[2022-07-02] MEDS: HYDROcodone/acetaminophen (*CRX) 5-325 MG TABLET 1 TAB PO ×2 (09:36→23:03)
--- NOTE | 2022-07-02 15:54 | PM.IMPN ---
Progress Note: A&P Assessment and Plan (1) Peritonitis associated with continuous ambulatory peritoneal dialysis: Code(s): T80.89XA - Other complications following infusion, transfusion and therapeutic injection, initial encounter; K65.9 - Peritonitis, unspecified; Z99.2 - Dependence on renal dialysis Status: Acute Assessment and Plan: presented with complaints of nausea, vomiting, abdominal pain and cloudy fluid. Concern for contamination of dialysis catheter. CT of the abdomen/ pelvis with no acute findings. No leukocytosis and patient remaining afebrile. Peritoneal fluid Gram stain negative. Peritoneal fluid culture pending. blood cultures pending. Patient was on vancomycin and Ceptaz edema which were discontinued on 07/01 per Nephrology. Continue to monitor cultures and further management per Nephrology recommendation (2) End-stage renal disease on peritoneal dialysis: Code(s): N18.6 - End stage renal disease; Z99.2 - Dependence on renal dialysis Status: Acute Assessment and Plan: Continue with peritoneal dialysis. Appreciate Nephrology consultation and management. (3) Metabolic acidosis: Code(s): E87.20 - Acidosis, unspecified Status: Acute Assessment and Plan: Resolved. CO2 on BMP today is 28. Continue p.o. sodium bicarb per Nephrology recommendations (4) Hypertension: Code(s): I10 - Essential (primary) hypertension Status: Acute Assessment and Plan: Blood pressures remaining stable. Continue home amlodipine and furosemide. (5) Erythropoietin deficiency anemia: Code(s): D63.1 - Anemia in chronic kidney disease Status: Acute Assessment and Plan: Hemoglobin and hematocrit remaining stable. Continue Epogen per Nephrology recommendations. Trend H&H. holding iron therapy given infection (6) Human immunodeficiency virus: Code(s): B20 - Human immunodeficiency virus [HIV] disease Status: Acute Assessment and Plan: Undetectable per patient report. Labs are stable. Continue Genvoya Subjective Date/time seen: 07/02/22 15:54 Interval history: date of service: 07/02/2022 China Weston is a 36-year-old female with a history of CVA, ESRD on peritoneal dialysis, erythropoietin deficiency anemia, HIV, hypertension, and CAD who is seen in follow-up for peritonitis. She is feeling well today. She has no abdominal pain. She does have some abdominal soreness with movement. She denies nausea or vomiting. She is tolerating her diet. Reports last bowel movement was 6 days ago. Denies shortness of breath, cough, chest pain, dizziness, lightheadedness, weakness. No fever or chills. Review of Systems Review of Systems: All systems reviewed & are unremarkable except as noted in HPI and below Exam Narrative: General: obese, well-appearing 36-year-old female, sitting up in bed, comfortable, NARD Neuro: awake, alert and oriented x4, speech clear, no focal neuro deficits noted HEENMT: normocephalic, atraumatic, EOMI, sclerae anicteric Respiratory: clear to auscultation bilaterally, nonlabored breathing Cardio: regular rate, regular rhythm with S1-S2 Abdomen: protuberant, normoactive bowel sounds, soft, nontender to palpation, peritoneal dialysis access noted Extremities: no edema, erythema, or tenderness to palpation, DP pulses 2+ bilaterally Skin: no rashes or lesions, warm and dry Psych: appropriate mood and affect, judgment and insight intact Objective Data Vital Signs Vital Signs: Vital Signs - 24 hr 07/01/22 17:24 07/01/22 20:00 07/01/22 20:00 Temperature 97 F L 97.8 F Pulse Rate 97 97 80 Respiratory Rate 16 16 18 Blood Pressure 113/57 L 130/70 Pulse Oximetry 96 99 Oxygen Delivery Room Air Room Air 07/01/22 22:00 07/02/22 06:00 07/02/22 07:25 Temperature 97.9 F 98.3 F 98.3 F Pulse Rate 80 84 84 Respiratory Rate 18 19 19 Blood Pressure 130/70 127/74 12
--- NOTE | 2022-07-02 18:41 | PM.PNNEP ---
Progress Note: A&P Assessment and Plan (1) End stage renal disease: Code(s): N18.6 - End stage renal disease Status: Acute Assessment and Plan: on PD. continue green bags. volume status doing well. potassium is fine (2) Erythropoietin deficiency anemia: Code(s): D63.1 - Anemia in chronic kidney disease Status: Acute Assessment and Plan: hb 9.7. she is on epo no need for iron since infected. (3) Renal osteodystrophy: Code(s): N25.0 - Renal osteodystrophy Status: Acute Assessment and Plan: phos is a bit high. follow this while here on sevelamer 800 tidwm Check another phosphorus tomorrow (4) Peritonitis associated with continuous ambulatory peritoneal dialysis: Code(s): T80.89XA - Other complications following infusion, transfusion and therapeutic injection, initial encounter; K65.9 - Peritonitis, unspecified; Z99.2 - Dependence on renal dialysis Status: Acute Assessment and Plan: still has pain but much better[place] [address] wbcs. cultures are negative on fortaz and vanco due for next dose of vancomycin on Thursday or Thursday she gets Fortaz every day in the long bag (5) Hypertension: Code(s): I10 - Essential (primary) hypertension Status: Acute Assessment and Plan: under good control. (6) Metabolic acidosis: Code(s): E87.20 - Acidosis, unspecified Status: Acute Assessment and Plan: CO2 28 now Subjective Date/time seen: 07/02/22 18:41 Interval history: patient has small amounts of pain and is much better no cp or sob Patient is on peritoneal dialysis. She is tolerating it well. She was seen at 18:15. Fluid is more clear. Definitely less blood. Exam Narrative: WDWN in NAD skin no rash or subcu nodules head ncat lungs clear cor reg no rub or gallop abd BS+ tender diffusely ext no edema. Objective Data Vital Signs Vital Signs: Vital Signs - 24 hr 07/01/22 20:00 07/01/22 20:00 07/01/22 22:00 Temperature 97.8 F 97.9 F Pulse Rate 97 80 80 Respiratory Rate 16 18 18 Blood Pressure 130/70 130/70 Pulse Oximetry 96 99 99 Oxygen Delivery Room Air 07/02/22 06:00 07/02/22 07:25 07/02/22 11:17 Temperature 98.3 F 98.3 F 97.7 F Pulse Rate 84 84 74 Respiratory Rate 19 19 16 Blood Pressure 127/74 127/74 124/71 Pulse Oximetry 96 97 Oxygen Delivery 07/02/22 08:00 07/02/22 14:50 07/02/22 15:05 Temperature 97.6 F 97.5 F L Pulse Rate 88 89 Respiratory Rate 16 16 Blood Pressure 124/75 133/78 Pulse Oximetry 97 98 Oxygen Delivery Room Air Intake/Output Intake/Output: Intake & Output 06/29/22 06/30/22 07/01/22 07/02/22 23:59 23:59 23:59 23:59 Intake Total 970 3650 1580 Output Total 448 3257 Balance 970 5290 -7334 Meds/Results Medications: Active Medications Generic Name Dose Route Start Last Admin Trade Name Freq PRN Reason Stop Dose Admin Acetaminophen 650 mg 06/30/22 07:37 Acetaminophen 325 Mg Tablet PO Q4H PRN Mild Pain (1-3) or Fever Hydrocodone Bitart/Acetaminophen 1 tab 06/30/22 07:37 07/02/22 09:36 Hydrocodone/Acetaminophen (*Crx) 5-325 Mg Tablet PO 1 tab Q4H PRN Administration Pain Rated 4-6 Epoetin Nasir-epbx 10,000 units 06/30/22 09:10 07/02/22 08:15 Epoetin Nasir-Epbx 10,000 Units/Ml Vial SUB-Q 10,000 units MOWEFR PERLA Administration Ergocalciferol 50,000 units 07/01/22 09:00 07/01/22 09:02 Ergocalciferol 50,000 Units Capsule PO 50,000 units MONTHLY PERLA Administration Furosemide 40 mg 07/01/22 09:00 07/02/22 08:10 Furosemide 40 Mg Tablet PO 40 mg DAILY PERLA Administration Home Med 1 each 07/01/22 09:00 07/02/22 08:10 [Genvoya] [phone] Mg Tablet *Use Home Supply PO 07/31/22 08:59 1 each DAILY PERLA Administration Home Med 1 each 07/03/22 09:00 Calcitriol 0.5 Mcg Capsule *Use Home Supply PO 08/02/22 08:59
[2022-07-03 00:02] VITALS: BP 126/70; PULSE 77; RESP 20; TEMP 36.4; O2SAT 99
[2022-07-03 03:00] VITALS: BP 131/74; PULSE 75; RESP 20; TEMP 36.4
[2022-07-03 03:40] VITALS: BP 131/74; PULSE 75; RESP 20; TEMP 35.9; O2SAT 98
[2022-07-03 03:43] VITALS: BP 131/74; PULSE 75; RESP 20; TEMP 36.4; O2SAT 98
[2022-07-03 05:24] LABS: Hematocrit 29.8 % (37.0-47.0); Hemoglobin 10.2 g/dL (12.0-15.0); Mean Corpuscular HGB Conc 34.2 g/dl (32-36); Mean Corpuscular Volume 93.4 fl (80-100); Mean Platelet Volume 8.4 fl (7.4-10.4); Platelet Count Result 247 k/mm3 (150-375); Red Blood Count 3.19 M/mm3 (4.2-5.4); Red Cell Distribution Width 12.8 % (11.5-14.5); White Blood Count 4.3 K/mm3 (4.5-10.0)
[2022-07-03 05:39] LABS: Albumin Level 3.3 g/dL (3.5-5.1); Anion Gap 5 mmol/L (8-16); Blood Urea Nitrogen 41 mg/dL (7-17); Calcium 8.6 mg/dL (8.4-10.2); Carbon Dioxide 30 mmol/L (22-30); Chloride 99 mmol/L (98-107); Estimated CRCL calculation 14 ml/min; Estimated Glomerular Filt Rate 7; Glucose 106 mg/dL (65-110); Phosphorus 5.9 mg/dL (2.5-4.5); Potassium 3.5 mmol/L (3.4-5.0); Sodium 134 mmol/L (137-145)
--- NOTE | 2022-07-03 07:19 | PM.PNNEP ---
Progress Note: A&P Assessment and Plan (1) End stage renal disease: Code(s): N18.6 - End stage renal disease Status: Acute Assessment and Plan: on PD. continue green bags. volume status is good. potassium is fine (2) Erythropoietin deficiency anemia: Code(s): D63.1 - Anemia in chronic kidney disease Status: Acute Assessment and Plan: hb now goal at 10.2 she is on epo no need for iron since infected. (3) Renal osteodystrophy: Code(s): N25.0 - Renal osteodystrophy Status: Acute Assessment and Plan: phos dropped a bit from 6.2-5.9. on sevelamer 800 tidwm Check another phosphorus tomorrow (4) Peritonitis associated with continuous ambulatory peritoneal dialysis: Code(s): T80.89XA - Other complications following infusion, transfusion and therapeutic injection, initial encounter; K65.9 - Peritonitis, unspecified; Z99.2 - Dependence on renal dialysis Status: Acute Assessment and Plan: still has pain but much better. [place] [address] wbcs. cultures are negative on fortaz and vanco, all intraperitoneal. Fluid is now almost clear. No more blood. Will get another cell count today. due for next dose of vancomycin on Thursday or Thursday (5) Hypertension: Code(s): I10 - Essential (primary) hypertension Status: Acute Assessment and Plan: under good control. (6) Metabolic acidosis: Code(s): E87.20 - Acidosis, unspecified Status: Acute Assessment and Plan: Resolved Subjective Date/time seen: 07/03/22 07:19 Interval history: Patient feels better. She still has some pain with filling Fluid is still clear. Breathing okay. Eating okay Exam Narrative: WDWN in NAD skin no rash or subcu nodules head ncat lungs clear cor reg no rub or gallop abd BS+ very mildly tender. Overall better. ext no edema. Objective Data Vital Signs Vital Signs: Vital Signs - 24 hr 07/02/22 07:25 07/02/22 11:17 07/02/22 08:00 Temperature 98.3 F 97.7 F Pulse Rate 84 74 Respiratory Rate 19 16 Blood Pressure 127/74 124/71 Pulse Oximetry 97 Oxygen Delivery Room Air 07/02/22 14:50 07/02/22 15:05 07/02/22 18:00 Temperature 97.6 F 97.5 F L 97 F L Pulse Rate 88 89 88 Respiratory Rate 16 16 18 Blood Pressure 124/75 133/78 124/72 Pulse Oximetry 97 98 97 Oxygen Delivery 07/02/22 20:12 07/02/22 20:16 07/02/22 20:30 Temperature 97.8 F 97.8 F Pulse Rate 86 86 Respiratory Rate 20 20 Blood Pressure 142/77 H 142/77 H Pulse Oximetry 99 99 Oxygen Delivery Room Air 07/03/22 00:02 07/03/22 03:40 07/03/22 03:43 Temperature 97.6 F 96.7 F L 97.6 F Pulse Rate 77 75 75 Respiratory Rate 20 20 20 Blood Pressure 126/70 131/74 131/74 Pulse Oximetry 99 98 98 Oxygen Delivery Intake/Output Intake/Output: Intake & Output 06/30/22 07/01/22 07/02/22 07/03/22 23:59 23:59 23:59 23:59 Intake Total 970 3650 1820 490 Output Total 448 3257 1200 Balance 970 5618 -3874 -625 Meds/Results Medications: Active Medications Generic Name Dose Route Start Last Admin Trade Name Freq PRN Reason Stop Dose Admin Acetaminophen 650 mg 06/30/22 07:37 Acetaminophen 325 Mg Tablet PO Q4H PRN Mild Pain (1-3) or Fever Hydrocodone Bitart/Acetaminophen 1 tab 06/30/22 07:37 07/02/22 23:03 Hydrocodone/Acetaminophen (*Crx) 5-325 Mg Tablet PO 1 tab Q4H PRN Administration Pain Rated 4-6 Epoetin Nasir-epbx 10,000 units 06/30/22 09:10 07/02/22 08:15 Epoetin Nasir-Epbx 10,000 Units/Ml Vial SUB-Q 10,000 units MOWEFR PERLA Administration Ergocalciferol 50,000 units 07/01/22 09:00 07/01/22 09:02 Ergocalciferol 50,000 Units Capsule PO 50,000 units MONTHLY PERLA Administration Fluconazole 100 mg 07/03/22 09:00 Fluconazole 100 Mg Tablet PO QAM [facility] Furosemide 40 mg 07/01/22 09:00 07/02/22 08:10 Furosemide 40 Mg Tablet PO
[2022-07-03] MEDS: SEVELAMER CARBONATE 800 MG TABLET PO ×2 (08:27→12:41)
[2022-07-03] MEDS: FUROSEMIDE 40 MG TABLET PO (08:27)
[2022-07-03] MEDS: FLUCONAZOLE 100 MG TABLET PO (08:28)
[2022-07-03] MEDS: SODIUM BICARBONATE TAB 650 MG TABLET 1300 MG PO (08:28)
[2022-07-03 10:00] VITALS: BP 119/83; PULSE 83; RESP 18; TEMP 36.4; O2SAT 98
[2022-07-03] MEDS: DOCUSATE SODIUM 100 MG CAPSULE PO (11:01)
[2022-07-03] MEDS: polyethylene glycoL 3350 17 GM POWD.PACK PO (11:01)
[2022-07-03 11:27] LABS: Appearance Peritoneal Fluid Clear (Clear); Color Peritoneal Fluid Colorless (Colorless); Nucleated Cells Peritoneal Flu 0 /uL (0-500); RBC Peritoneal Fluid 134 /uL (0-100000); Source Peritoneal Fluid Peritoneal Fluid
[2022-07-03 11:28] LABS: Lymphocytes Peritoneal Fluid 36 %; Macrophages Peritoneal Fluid 2 %; Mesothelial Cells Peritoneal Fluid 7 %; Monocytes Peritoneal Fluid 44 %; Neutrophils Peritoneal Fluid 11 % (0-25)
--- NOTE | 2022-07-03 12:31 | PM.DS ---
DS: Admitting Diagnosis Discharge Date 07/03/2022 Admitting Diagnosis Peritonitis DS: Discharge Diagnosis Discharge Diagnosis (1) Peritonitis associated with continuous ambulatory peritoneal dialysis: Code(s): T80.89XA - Other complications following infusion, transfusion and therapeutic injection, initial encounter; K65.9 - Peritonitis, unspecified; Z99.2 - Dependence on renal dialysis Status: Acute Assessment and Plan: Presented with complaints of nausea, vomiting, abdominal pain and cloudy fluid. Concern for contamination of dialysis catheter. CT of the abdomen/ pelvis with no acute findings. No leukocytosis and patient remained afebrile. Peritoneal fluid Gram stain negative. Peritoneal fluid culture and blood cultures negative to date and final cultures will be monitored. Initially received IV and intraperitoneal vancomycin and ceftazidine. Will continue with intraperitoneal vancomycin infusions at outpatient dialysis, managed per nephrology. (2) End-stage renal disease on peritoneal dialysis: Code(s): N18.6 - End stage renal disease; Z99.2 - Dependence on renal dialysis Status: Acute Assessment and Plan: Continue with peritoneal dialysis. Plan as above (3) Metabolic acidosis: Code(s): E87.20 - Acidosis, unspecified Status: Acute Assessment and Plan: Resolved with p.o. sodium bicarb (4) Hypertension: Code(s): I10 - Essential (primary) hypertension Status: Acute Assessment and Plan: Blood pressures remained stable. Continue home amlodipine and furosemide. (5) Erythropoietin deficiency anemia: Code(s): D63.1 - Anemia in chronic kidney disease Status: Acute Assessment and Plan: Hemoglobin and hematocrit remained stable. Received Epogen during admission per Nephrology recommendations. Iron therapy held due to acute infection. Continue with outpatient monitoring on routine labs (6) Human immunodeficiency virus: Code(s): B20 - Human immunodeficiency virus [HIV] disease Status: Acute Assessment and Plan: Undetectable per patient report. Continue Genvoya DS: Summary Hospital Course Hospital Course: Date of admission: 06/30/2022 Date of discharge: 07/03/2022 China Weston is a 36-year-old female with a history of ESRD on peritoneal dialysis, CVA, erythropoieten deficiency anemia, HIV, hypertension, and CAD who presented to the emergency department on 06/30/2022 with complaints of diffuse abdominal pain and cloudiness of dialysis fluid. On presentation to the ED, she was mildly tachycardic and tachypneic, afebrile, WBC 6.7, BUN 67, creatinine 9.6, additional laboratory workup unremarkable, peritoneal fluid was cultured with elevated cell count, and CT of the abdomen/pelvis showed no acute findings. She was admitted to the hospitalist service for further evaluation management was seen in consultation by nephrology. Please see above for further details. She received IV antibiotics as well as intraperitoneal antibiotics. G stain was negative and preliminary fluid culture and blood cultures showed no growth, final cultures will be monitored. The patient had overall improvement and was determined to no longer require inpatient care. She will continue with intraperitoneal vancomycin which will be managed at outpatient dialysis center. Patient was given instructions to contact her dialysis nurse to arrange infusion tomorrow, 07/04. Patient was discharged in hemodynamically stable condition on 07/03/2022. Time Spent with Patient Time attestation: Total time spent providing and/or coordinating discharge services: 45 minutes Time spent: Greater than 30 minutes Exam Narrative: General: obese, well-appearing 36-year-old female, sitting up in bed, comfortable, NARD Neuro: awake, alert and oriented x4, speech clear, no focal neuro deficits noted HEENMT: normocephalic, atraumatic, EOMI, sc
== END 2022-07-03 13:54 | disposition home or self-care (01) | DRG 811 ==
LOC: ANHED 06-30 08:07 → ANH3MEDSUR 06-30 10:26 → ANH2MED 06-30 15:44
PROVIDERS: Internal Medicine Nephrology; Nurse Practitioner; Physician Assistant; Admitting Provider Internal Medicine; Emergency Provider Emergency Medicine; Visit Provider Physician Assistant
DX: T80.89XA Other complications following infusion, transfusion and therapeutic injection, initial encounter (principal); K65.8 Other peritonitis; N18.6 End stage renal disease; E87.20 Acidosis, unspecified; I12.0 Hypertensive chronic kidney disease with stage 5 chronic kidney disease or end stage renal disease; Z21 Asymptomatic human immunodeficiency virus [HIV] infection status; D63.1 Anemia in chronic kidney disease; I25.2 Old myocardial infarction; I25.10 Atherosclerotic heart disease of native coronary artery without angina pectoris; N25.0 Renal osteodystrophy; Z20.822 Contact with and (suspected) exposure to COVID-19; Z99.2 Dependence on renal dialysis; Z86.73 Personal history of transient ischemic attack (TIA), and cerebral infarction without residual deficits
CPT/HCPCS: 36415; 74176; 80053; 80069; 80202; 81001; 81025; 83605; 83690; 83735; 85025; 85027; 87040; 87070; 87075; 87086; 87088; 87205; 87636; 89051; 90945; 93970; 96365; 96367; 96375; 99285; A9270; J0713; J1170; J2270; J2405; J3370; Q5105

== ENCOUNTER 2022-11-07 13:25 | Inpatient (IN) | payer MEDICARE, MEDICAID, SELFPAY ==
--- NOTE | ~2022-11-07 | CT_ITS ---
EXAMINATION: CT abdomen pelvis w con DATE: 11/07/2022 18:21 INDICATION: Abdominal pain. TECHNIQUE: Computed tomography (CT) of the abdomen and pelvis was performed with 100 mL Omnipaque 350 intravenous contrast. Automated exposure control and iterative reconstruction technique were employe d. The dose-length product was 1352.67 mGy-cm. COMPARISON: CT abdomen and pelvis 06/30/2022 FINDINGS: The visualized portions of the lung bases are clear without pneumonia or pleural effusion. The heart size is normal. No pericardial effusion. The liver, gallbladder, spleen, pancreas, and adre nal glands are normal. There is moderate atrophy of the kidneys. There are no dilated loops of bowel. The appendix is normal. There are no pathologically enlarged lymph nodes. There is a moderate volume of ascites. There is a peritoneal dialysis catheter in expected position. There is mild thoracic and lumbar spondylosis. IMPRESSION: 1. Moderate volume of ascites with peritoneal dialysis catheter in expected position. Reviewed, dictated and finalized at location E. IMPRESSION: 1. Moderate volume of ascites with peritoneal dialysis catheter in expected pos ition.
[2022-11-07 13:40] VITALS: BP 158/97; PULSE 92; RESP 18; TEMP 36.6; O2SAT 98
[2022-11-07 13:56] LABS: Basophils Percent Auto 0.7 % (0.2-1.2); Eosinophils Absolute Auto 0.1 K/mm3 (0-0.3); Hematocrit 31.9 % (37.0-47.0); Hemoglobin 11.2 g/dL (12.0-15.0); Immature Granulocyte Absolute 0.02 K/mm3 (0.00-0.031); Immature Granulocyte Percent A 0.4 % (0-0.5); Lymphocytes Absolute Auto 1.48 K/mm3 (0.9-3.2); Lymphocytes Percent Auto 27.2 % (18.3-44.2); Mean Corpuscular HGB Conc 35.1 g/dl (32-36); Mean Corpuscular Hemoglobin 33.3 pg (26-34); Mean Corpuscular Volume 94.9 fl (80-100); Mean Platelet Volume 8.1 fl (7.4-10.4); Monocytes Absolute Auto 0.4 K/mm3 (0.1-0.6); Monocytes Percent Auto 7.7 % (2.6-8.5); Neutrophils Absolute Auto 3.4 K/mm3 (1.3-6.7); Platelet Count Result 304 k/mm3 (150-375); Red Blood Count 3.36 M/mm3 (4.2-5.4); Red Cell Distribution Width 14.2 % (11.5-14.5); White Blood Count 5.4 K/mm3 (4.5-10.0)
[2022-11-07 14:10] LABS: Alanine Aminotransferase 19 U/L (6-35); Albumin Level 4.2 g/dL (3.5-5.1); Alkaline Phosphatase 47 U/L (38-126); Anion Gap 11 mmol/L (8-16); Aspartate Amino Transferase 24 U/L (14-36); Bilirubin,Total 0.6 mg/dL (0.2-1.3); Blood Urea Nitrogen 67 mg/dL (7-17); Calcium 8.6 mg/dL (8.4-10.2); Carbon Dioxide 23 mmol/L (22-30); Chloride 104 mmol/L (98-107); Estimated CRCL calculation 11 ml/min; Estimated Glomerular Filt Rate 5; Glucose 127 mg/dL (65-110); Lipase 83 U/L (23-300); Potassium 3.5 mmol/L (3.4-5.0); Sodium 138 mmol/L (137-145)
[2022-11-07 15:50] VITALS: BP 159/86; PULSE 88; TEMP 36.3; O2SAT 100
--- NOTE | 2022-11-07 17:13 | PC.NURSE ---
Patient performs dialysis on herself at home. Patient starts after giving her self her dialysis this morning she began having cramps. Patient also complains of diarrhea. Patient has skin breakdown around the site of peritoneal dialysis
[2022-11-07 17:18] LABS: Appearance Urine Cloudy (Clear); Bilirubin Urine Negative (Negative); Blood Urine 1+ (Negative); Color Urine Light Yellow (Yellow); Glucose Urine UA Negative (Negative); Ketones Urine Negative (Negative); Leukocyte Esterase Ur 1+ LEU/UL (Negative); Nitrate Urine Negative (Negative); Protein Urine 2+ mg/dL (Negative); Specific Grav Ur 1.015 (1.001-1.035); Urobilinogen Urine 0.2 mg/dL (<2.0); pH Urine 5.5 (5.0-9.0)
[2022-11-07 17:26] LABS: Add Urine Microscopic? YES
[2022-11-07 17:27] LABS: Bacteria Urine 1+ /hpf; Squamous Epithelial Cell Urine Many /hpf (Few)
--- NOTE | 2022-11-07 17:35 | ED.ABDPAIN ---
HPI - Abdominal Pain General Chief Complaint: Abdominal Pain Stated Complaint: abdominal pain Time Seen by Provider: 11/07/22 17:07 Source: patient Mode of arrival: ambulatory Limitations: no limitations History of Present Illness HPI narrative: This is a 37-year-old female with PMH of HIV, ESRD, HTN, peritonitis who presents to the ED with chief complaint of abdominal pain that started about 6 AM this morning. States this started after she was finished with her peritoneal dialysis. States she does this every night. Patient states the pain is at 11 out of 10. Reports pain is diffuse. No specific location or radiation of pain. Also reports 1 episode of loose stools. Denies any nausea or vomiting. Denies any bloody stools. States she has been taking all of her medications. Denies chest pain, shortness of breath, fevers, chills, cough, urinary symptoms. Related Data Home Medications Medication Instructions Recorded Confirmed elviteg 150 mg-cob 150 mg-emtricit 1 tablet PO DAILY 09/07/20 11/07/22 200 mg-tenofo alafenam 10 mg tablet (Genvoya) ergocalciferol (vitamin D2) 1,250 1,250 mcg PO MONTHLY 09/07/20 11/07/22 mcg (50,000 unit) capsule furosemide 40 mg tablet (Lasix) 40 mg PO DAILY 09/07/20 11/07/22 sevelamer carbonate 800 mg tablet 800 mg PO TIDWM 09/07/20 11/07/22 amlodipine 10 mg tablet 10 mg PO DAILY 06/30/22 11/07/22 calcitriol 0.5 mcg capsule 0.5 mcg PO DAILY 06/30/22 11/07/22 Allergies Allergy/AdvReac Type Severity Reaction Status Date / Time aspirin Allergy Unknown UNKNOWN Verified 11/07/22 13:25 ciprofloxacin Allergy Unknown UNKNOWN Verified 11/07/22 13:25 RIVERA Inhibitors Allergy Swelling Verified 11/07/22 13:25 of Lip/Tongue/Throat morphine AdvReac Mild Itching Verified 11/07/22 22:54 Review of Systems Review of Systems: CONSTITUTIONAL: Denies fever, chills, or sweats. EYES: Denies visual changes, redness, or discharge. ENT: Denies rhinorrhea, congestion, sore throat, or otalgia. CARDIOVASCULAR: Denies chest pain, palpitations, or edema. RESPIRATORY: Denies cough or dyspnea. GASTROINTESTINAL: See HPI GENITOURINARY: Denies dysuria or hematuria. SKIN: Denies rash or itching. MUSCULOSKELETAL: Denies back pain, joint pain, or myalgia. NEUROLOGIC: Denies headache, numbness, dizziness, or weakness. PSYCHIATRIC: Denies anxiety or depression. [facility] Past Medical History Medical History (Updated 11/07/22 @ 21:29 by Alexandre Spain PA-C) Cerebrovascular accident End-stage renal disease on peritoneal dialysis Erythropoietin deficiency anemia Human immunodeficiency virus Hypertension Myocardial infarction Renal osteodystrophy Surgical History Surgical History (Updated 06/30/22 @ 21:12 by Viola Haddad PA-C) Peritoneal dialysis catheter in place Family History Family History (Updated 11/07/22 @ 23:27 by Gerald Ro RN) Grandparent Hypertension Social History Social History (Updated 06/30/22 @ 21:13 by Viola Haddad PA-C) Social History: Surrogate medical decision maker: Faustina Weston, mother. Code status: Full code. Smoking status: Never smoker Alcohol intake: current Drinks per week: 2 Substance use: current Substance use type: marijuana Lack of Transportation: No Lack of Food: Never True Current Housing: I Have Housing Concerned About Future Housing: No Difficulty Paying Gas/Electric Bills: No Difficulty Paying for Meds: No Currently Unemployed: No Education: High School Diploma/GED Difficulty w/ Childcare or Family Care: No Additional occupation/education comments: Office work. Spiritual care concerns: No Exam Narrative: GENERAL: Well-appearing, well-nourished, and in no acute distress. HEAD: Normocephalic, atraumatic. EYES: PERRLA and EOMI. ENT: Nares clear, no rhinorrhea or epistaxis. Mucous membranes moist. Oropharynx without tonsillar hypertrophy exudate or other lesions. NECK: Supple. No adenop
[2022-11-07] MEDS: MORPHINE SULFATE (*CRX) 4 MG/ML INJ IV PUSH ×2 (17:53→20:51)
[2022-11-07] MEDS: ONDANSETRON INJ 4 MG/2 ML VIAL IV PUSH (17:53)
[2022-11-07 21:33] LABS: Appearance Peritoneal Fluid Clear (Clear); Color Peritoneal Fluid Yellow (Colorless); Nucleated Cells Peritoneal Flu 127 /uL (0-500); Source Peritoneal Fluid Peritoneal Fluid
--- NOTE | 2022-11-07 21:33 | PC.NURSE ---
Lab calls to report moderate wbc and no organisms on gram stain. Alexandre Spain, PAC aware
[2022-11-07 21:34] LABS: Eosinophils Peritoneal Fluid 2 %; Lymphocytes Peritoneal Fluid 35 %; Macrophages Peritoneal Fluid 10 %; Mesothelial Cells Peritoneal Fluid 5 %; Monocytes Peritoneal Fluid 25 %; Neutrophils Peritoneal Fluid 23 % (0-25); RBC Peritoneal Fluid < 2000 /uL (0-100000)
[2022-11-07] MEDS: cefTAZidime 1 GM/NS 50 ML 1 GM/50 ML BAG IVPB (22:29)
--- NOTE | 2022-11-07 22:51 | PC.NURSE ---
Patient arrived on 3 Med-Surg at 22:45
[2022-11-07 22:59] VITALS: BP 152/84; PULSE 86; RESP 16; TEMP 36.4; O2SAT 98; BMI 44.6
[2022-11-07 23:01] VITALS: BP 152/84; PULSE 86; RESP 16; TEMP 36.4; O2SAT 98; BMI 44.6
[2022-11-07 23:20] VITALS: BMI 48.4
[2022-11-07] MEDS: diphenhydrAMINE HCl CAP 25 MG CAPSULE PO (23:40)
[2022-11-07] MEDS: HYDROmorphone HCL INJ (*CRX) 1 MG/ML SYR 0.5 MG IV PUSH (23:40)
[2022-11-08] MEDS: HYDROmorphone HCL INJ (*CRX) 1 MG/ML SYR 0.5 MG IV PUSH ×3 (05:30→20:02)
[2022-11-08 05:48] VITALS: BP 128/71; PULSE 74; RESP 16; TEMP 36.3; O2SAT 98
--- NOTE | 2022-11-08 09:12 | PM.IMHP ---
H&P: HPI History of Present Illness Date/Time: 11/08/22 09:12 Chief Complaint: abdominal pain Narrative: 37-year-old female on peritoneal dialysis for in straits renal disease was in her usual state of health until last evening when she developed sudden onset of lower abdominal sharp cramping discomfort that was moderately severe. This was associated with onset of watery diarrhea that was brown in color and like urine . She had multiple episodes of diarrhea into the night. This was associated with the abdominal cramping. Pain was made worse by instilling her peritoneal dialysis fluid and by ambulating. She had no associated nausea vomiting or fever chills. No rash. No recent travel or exposures. No recent antibiotic therapy over the last 6-8 weeks. This morning her pain is better and her diarrhea has resolved. She did have her peritoneal fluid sent for analysis via the emergency room and results of that her fairly benign. She tolerated her breakfast well this morning. She is independently ambulatory. She would like to go home if Nephrology allows her to do so. She did receive 1 dose of ceftazidime in the emergency department. She denies and denied any abnormal bleeding. Last menstrual. Was last week. Denied any dysuria or hematuria. Denied chest pain shortness of breath palpitations syncope or presyncope. Denied lower extremity swelling. She does take diuretics to prevent this. Appetite has been good weight fairly stable. Denied recent issues with her dialysis catheter. Only difference in her routine is that she has been staying with her boyfriend for the past week instead of at home. But she has been following the same routine. Review of Systems Review of Systems: All systems reviewed & are unremarkable except as noted in HPI and below PMFSH Past Medical History Medical History Cerebrovascular accident End-stage renal disease on peritoneal dialysis Erythropoietin deficiency anemia Human immunodeficiency virus Hypertension Myocardial infarction Renal osteodystrophy Surgical History Surgical History Peritoneal dialysis catheter in place Family History Family History Grandparent Hypertension Social History Social History Social History: Surrogate medical decision maker: Faustina Weston, mother. Code status: Full code. Smoking status: Never smoker Alcohol intake: current Drinks per week: 2 Substance use: current Substance use type: marijuana Lack of Transportation: No Lack of Food: Never True Current Housing: I Have Housing Concerned About Future Housing: No Difficulty Paying Gas/Electric Bills: No Difficulty Paying for Meds: No Currently Unemployed: No Education: High School Diploma/GED Difficulty w/ Childcare or Family Care: No Additional occupation/education comments: Office work. Spiritual care concerns: No Meds Home Medications and Allergies Home Medications Medication Instructions Recorded Confirmed Type elviteg 150 mg-cob 150 mg-emtricit 1 tablet PO DAILY 09/07/20 11/07/22 History 200 mg-tenofo alafenam 10 mg tablet (Genvoya) ergocalciferol (vitamin D2) 1,250 1,250 mcg PO MONTHLY 09/07/20 11/07/22 History mcg (50,000 unit) capsule furosemide 40 mg tablet (Lasix) 40 mg PO DAILY 09/07/20 11/07/22 History sevelamer carbonate 800 mg tablet 800 mg PO TIDWM 09/07/20 11/07/22 History amlodipine 10 mg tablet 10 mg PO DAILY 06/30/22 11/07/22 History calcitriol 0.5 mcg capsule 0.5 mcg PO DAILY 06/30/22 11/07/22 History Allergies Allergy/AdvReac Type Severity Reaction Status Date / Time aspirin Allergy Unknown UNKNOWN Verified 11/07/22 13:25 ciprofloxacin Allergy Unknown UNKNOWN Verified 11/07/22 13:25 RIVERA Inhibitors Allergy Idalia
[2022-11-08 11:04] LABS: Hepatitis B Surface Antigen Negative (Negative)
[2022-11-08 11:09] LABS: Hepatitis B Core IgM Result Negative (Negative)
[2022-11-08 11:35] LABS: Hepatitis B Surface Anti Res Positive
--- NOTE | 2022-11-08 12:12 | PM.CNNEP ---
Assessment and Plan Assessment and plan (1) End stage renal disease: Code(s): N18.6 - End stage renal disease Status: Chronic Assessment and Plan: resume CCPD tonight follow electrolytes, volume status, and clearance (2) Abdominal pain: Code(s): R10.9 - Unspecified abdominal pain Status: Acute Assessment and Plan: etiology not clear doubt peritonitis based on PD fluid analysis CT of abd/pelvis without any acute pathology noted possible viral gastroenteritis? continue pain control (3) Hypertension: Code(s): I10 - Essential (primary) hypertension Status: Chronic Assessment and Plan: controlled at this time follow trend of hemodynamics (4) Anemia: Code(s): D64.9 - Anemia, unspecified Status: Chronic Assessment and Plan: due to ESRD H/H at goal resume Epogen if Hgb < 10 I will continue follow the patient with you while she remains hospitalized and make further recommendations during her hospital course. Thank you for allowing me to participate in the care of this patient. History of Present Illness Reason for Consult Consult date: 11/08/22 Reason for consult: end stage renal disease Chief Complaint Chief complaint: SBP, abdominal pain History of Present Illness Narrative: The patient is a 37-year-old female with a past medical history as outlined below who presented to [facility] Emergency room due to abdominal pain. Apparently, yesterday evening, she developed sudden lower abdominal pain that was quite severe in intensity. She described the pain as localized to her lower abdominal area with a sharp/cramping discomfort. The abdominal pain was associated with watery diarrhea and multiple episodes of diarrhea overnight as well. She denies any nausea, vomiting, fevers, chills, dizziness, lightheadedness, or palpitations. She denies any sick contacts or recent antibiotics in the last month. As the pain continued to worsen in intensity and it seemed to be also somewhat worse when she attempted do her peritoneal dialysis the evening prior to presentation, she came to the ER for further assessment. Workup and evaluation emergency room demonstrated the patient to be hemodynamically stable but in clear distress secondary to her abdominal pain. Routine blood test demonstrated labs consistent with her known history of end-stage renal disease without any significant electrolyte abnormalities. Her LFTs and lipase were within normal limits and a subsequent CT scan of the abdomen pelvis did not demonstrate any acute intra-abdominal pathology. As she does have a history of peritonitis, a PD fluid sample was collected by the dialysis nurse which did not demonstrate any significant evidence of peritonitis. She was empirically given a dose of IV cefepime in the emergency room and subsequently admitted to the hospital for further evaluation and therapy. Renal consultation was requested due to her end-stage renal disease on peritoneal dialysis. The patient normally does nightly peritoneal dialysis under the care of Dr. Sam Swan through [facility]. As far as I am aware, she has been compliant with her peritoneal dialysis treatments and has relative stability in her monthly labs. As mentioned above, she did have a bout of peritonitis about 4-5 months ago in June of 2022 but this was successively treated with intraperitoneal antibiotics and her PD fluid cultures never actually grew a specific organism although her PD fluid at that time was highly consistent with this diagnosis. Apparently, early this morning, her abdominal pain was doing significantly better and she tolerated breakfast without any issues or problems. However, she tells me now that the abdominal pain seems to have recurred and once again seems to be associated with using the bathroom. Currently, at the time my visit, she is in mild distres
[2022-11-08 14:00] VITALS: BP 132/75; PULSE 80; RESP 20; TEMP 36.7; O2SAT 100
[2022-11-08 15:40] LABS: Amphetamine Screen Urine Negative (Negative); Barbiturate Screen Urine Negative (Negative); Benzodiazepines Screen Urine Negative (Negative); Cannabinoid Screen Urine Negative (Negative); Cocaine Screen Urine Negative (Negative); Methadone Screen Urine Negative (Negative); Opiate Screen Urine Negative (Negative); Phencyclidine Screen Urine Negative (Negative)
[2022-11-08] MEDS: DICYCLOMINE HCL 10 MG CAPSULE 20 MG PO ×2 (16:12→20:04)
[2022-11-08 19:30] VITALS: BP 142/82; PULSE 89; RESP 18; TEMP 36.1; O2SAT 96
[2022-11-08 21:24] VITALS: BP 133/74; PULSE 81; RESP 16; TEMP 36.3; O2SAT 97
[2022-11-09 05:23] VITALS: BP 127/83; PULSE 80; RESP 16; TEMP 36.1; O2SAT 97
[2022-11-09] MEDS: HYDROmorphone HCL INJ (*CRX) 1 MG/ML SYR 0.5 MG IV PUSH (08:26)
--- NOTE | 2022-11-09 09:58 | PM.PNNEP ---
Progress Note: A&P Assessment and Plan (1) End stage renal disease: Code(s): N18.6 - End stage renal disease Status: Chronic Assessment and Plan: continue nightly CCPD while hospitalized follow electrolytes, volume status, and clearance (2) Abdominal pain: Code(s): R10.9 - Unspecified abdominal pain Status: Acute Assessment and Plan: etiology not clear doubt peritonitis based on PD fluid analysis CT of abd/pelvis without any acute pathology noted possible viral gastroenteritis given admission history continue pain control (3) Hypertension: Code(s): I10 - Essential (primary) hypertension Status: Chronic Assessment and Plan: controlled at this time follow trend of hemodynamics (4) Anemia: Code(s): D64.9 - Anemia, unspecified Status: Chronic Assessment and Plan: due to ESRD H/H at goal resume Epogen if Hgb < 10 Will continue to follow. Subjective Date/time seen: 11/09/22 09:58 Interval history: Follow-up for end stage renal disease on peritoneal dialysis. Tolerated peritoneal dialysis treatment overnight without any issue or problems; abdominal pain still comes and goes but appears to be doing significantly better at this time; no apparent distress noted; no issues/events overnight or earlier this morning. Exam Narrative: General: WD/WN AA female in NAD Heart: normal S1 and S2; no rub Lungs: clear to auscultation Abdomen: soft, mild TTP, nondistended, positive bowel sounds Extremities: no cyanosis or clubbing; no edema Skin: warm and dry Objective Data Vital Signs Vital Signs: Vital Signs Temp Pulse Resp BP Pulse Ox O2 Del Method 11/09/22 08:15 Room Air 11/09/22 05:23 97 F L 80 16 127/83 97 11/08/22 21:24 97.4 F L 81 16 133/74 97 11/08/22 19:30 96.9 F L 89 18 142/82 H 96 Room Air 11/08/22 14:00 98.1 F 80 20 132/75 100 Intake/Output Intake/Output: Intake & Output 11/06/22 11/07/22 11/08/22 11/09/22 23:59 23:59 23:59 23:59 Intake Total 3080 986 Output Total 2300 Balance 780 986 Meds/Results Radiology Results: ITS Impressions Abdomen/Pelvis CT 04/28/23 18:23 IMPRESSION: 1. Moderate volume of ascites with peritoneal dialysis catheter in expected position. Labs Labs: Laboratory Tests 11/07/22 13:49 11/07/22 13:48 11/07/22 17:10 Urine Opiates Screen Negative Urine Methadone Screen Negative Ur Barbiturates Screen Negative Ur Phencyclidine Scrn Negative Ur Amphetamine Screen Negative U Benzodiazepines Scrn Negative Urine Cocaine Screen Negative U Cannabinoids Screen Negative Microbiology 11/07/22 20:32 Peritoneal Fluid Anaerobic Culture - Preliminary 11/07/22 20:32 Peritoneal Fluid Aerobic Culture - Preliminary 11/07/22 20:32 Ascites Fluid Anaerobic Culture - Preliminary 11/07/22 20:32 Ascites Fluid Aerobic Culture - Preliminary
--- NOTE | 2022-11-09 10:00 | PM.DS ---
DS: Admitting Diagnosis Discharge Date November 09, 2022 Admitting Diagnosis abdominal pain with diarrhea DS: Discharge Diagnosis Discharge Diagnosis (1) Abdominal pain: Code(s): R10.9 - Unspecified abdominal pain Status: Acute Assessment and Plan: Suspect acute viral gastroenteritis rather than peritonitis (2) Human immunodeficiency virus: Code(s): B20 - Human immunodeficiency virus [HIV] disease Status: Acute (3) End-stage renal disease on peritoneal dialysis: Code(s): N18.6 - End stage renal disease; Z99.2 - Dependence on renal dialysis Status: Acute Assessment and Plan: Sees Dr. Vargas [place] for nephrology PCP is also in [place] (4) Hypertension: Code(s): I10 - Essential (primary) hypertension Status: Chronic Assessment and Plan: Continue medications (5) Erythropoietin deficiency anemia: Code(s): D63.1 - Anemia in chronic kidney disease Status: Acute Assessment and Plan: clinically stable Plan SCDs while in bed for DVT prophylaxis DS: Summary Hospital Course Reason for hospitalization: abdominal pain and diarrhea Hospital Course: patient presented emergency room with abdominal pain diarrhea and abdominal tenderness. It was similar to what she experienced with prior peritonitis secondary to her peritoneal dialysis catheter except this time she had diarrhea. However her ascites fluid was unremarkable. Her stool studies were negative. Her symptoms improved with dicyclomine and analgesics. She was tolerating her diet and tolerating her peritoneal dialysis. She was seen by Nephrology who agreed that this was not peritonitis. She remained afebrile ambulatory and is functioning independently for all ADLs. She was to be discharged home on and antispasmodics and analgesics similar though she was receiving while inpatient. She was to follow up with her primary physician in [place] within 1 week Time Spent with Patient Time attestation: Total time spent providing and/or coordinating discharge services: Exam Narrative: HEENT: EOMI, PERRL, sclerae nonicteric, pharyngeal mucosa pink and intact NECK: No JVD, adenopathy, or thyromegaly CHEST: MILD INSPIRATORY AND EXPIRATORY WHEEZES. Normal effort. HEART: NL S1/S2, regular, no murmur ABDOMEN: BS+, soft, DIFFUSE TENDERNESS WITHOUT REBOUND GUARDING OR MASS THAT IS GENERALIZED BUT MORE PROMINENT IN THE BILATERAL LOWER ABDOMEN AND HYPOGASTRIUM. EXTREMITIES: No cyanosis, edema, or clubbing NEUROLOGIC: CN intact and symmetric to inspection. MUSCULOSKELETAL: Tone and strength symmetric. PSYCH: Alert. Oriented to person, place, and time. DS: Data Data Completed and Pending Labs on day of discharge: Labs from last 24 hours 11/08/22 11/07/22 09:06 17:10 Urine Opiates Screen Negative Urine Methadone Screen Negative Ur Barbiturates Screen Negative Ur Phencyclidine Scrn Negative Ur Amphetamine Screen Negative U Benzodiazepines Scrn Negative Urine Cocaine Screen Negative U Cannabinoids Screen Negative Hep Bs Antigen Negative Hep Bs Antibody Positive Hep B Core IgM Ab Negative Preliminary micro results at discharge 11/07/22 20:32 Anaerobic Culture - Preliminary Peritoneal Fluid Aerobic Culture - Preliminary 11/07/22 20:32 Anaerobic Culture - Preliminary Ascites Fluid Aerobic Culture - Preliminary Discharge Plan Discharge Consulting providers: Marisa Adams Discharging Clinician: Markell Caldwell Patient Disposition: Home, Self-Care Activity: as tolerated Diet: renal Stand Alone Forms: General Discharge Information Follow-up/Referrals: PHYSICIAN NOT ON STAFF,NONSTAFF [Primary Care Provider] - 1 Week (See PCP and 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
== END 2022-11-09 11:35 | disposition home or self-care (01) | DRG 391 ==
LOC: ANHED 21:29 → ANH3MEDSUR 22:25
PROVIDERS: Emergency Medicine; Internal Medicine Nephrology; Admitting Provider Internal Medicine; Emergency Provider Physician Assistant; Visit Provider Internal Medicine
DX: A08.4 Viral intestinal infection, unspecified (principal); N18.6 End stage renal disease; I12.0 Hypertensive chronic kidney disease with stage 5 chronic kidney disease or end stage renal disease; B20 Human immunodeficiency virus [HIV] disease; D63.1 Anemia in chronic kidney disease; N25.0 Renal osteodystrophy; Z99.2 Dependence on renal dialysis; I25.2 Old myocardial infarction
CPT/HCPCS: 36415; 74177; 80053; 80307; 81001; 81025; 83690; 85025; 86705; 86706; 87070; 87075; 87205; 87340; 89051; 90945; 96374; 96375; 96376; 99285; A9270; G0378; J0713; J1170; J2270; J2405; Q9967

== ENCOUNTER 2023-03-26 12:13 | Emergency (ER) | payer OTHER, SELFPAY ==
--- NOTE | ~2023-03-26 | CT_ITS ---
EXAMINATION: CT abdomen pelvis wo con DATE: 03/26/2023 15:08 INDICATION: Right flank pain TECHNIQUE: Computed tomography (CT) of the abdomen and pelvis was performed without intravenous contr ast. The dose-length product (DLP) was 1614.76 mGy-cm. Automated exposure control and iterative recon struction technique were employed. COMPARISON: 11/07/2022 FINDINGS: The lung bases are clear. The heart size is normal. The liver, spleen, pancreas, gallbladde r, and adrenal glands are normal. There is moderate atrophy of the kidneys. No stones are identified in the kidneys, ureters, or bladder. No hydronephrosis or hydroureter. A peritoneal dialysis catheter coils in the left pelvis. There is a moderate volume of ascites, consistent with peritoneal dialysis . No pathologically enlarged abdominal or pelvic lymph nodes are identified. No free intraperitoneal gas or evidence of bowel obstruction. Colonic diverticulosis is present without evidence of diverticu litis. There is mild lumbar spondylosis. The appendix is normal. IMPRESSION: 1. No CT correlate for the patient's symptoms. Reviewed, dictated and finalized at location F.
[2023-03-26 12:25] VITALS: BP 151/85; PULSE 88; RESP 16; TEMP 36.4; O2SAT 100
[2023-03-26 14:00] VITALS: BP 154/85; PULSE 98; RESP 18; O2SAT 99
[2023-03-26] MEDS: HYDROcodone/acetaminophen (*CRX) 5-325 MG TABLET 1 TAB PO (14:43)
[2023-03-26 14:59] LABS: Appearance Urine Clear (Clear); Bacteria Urine None Seen /hpf; Bilirubin Urine Negative (Negative); Blood Urine 1+ (Negative); Color Urine Yellow (Yellow); Glucose Urine UA Negative (Negative); Ketones Urine Negative (Negative); Leukocyte Esterase Ur Negative LEU/UL (Negative); Nitrate Urine Negative (Negative); Non Pathogenic Casts 0-2; Protein Urine 2+ mg/dL (Negative); RBC Urine 0-2 /hpf (0-2); Specific Grav Ur 1.013 (1.001-1.035); Squamous Epithelial Cell Urine Occasional /hpf (Few); Urobilinogen Urine 0.2 mg/dL (<2.0); WBC Urine 0-5 /hpf; pH Urine 7.5 (5.0-9.0)
[2023-03-26 15:09] LABS: Add Urine Microscopic? YES
[2023-03-26 15:30] VITALS: BP 138/72; PULSE 80; RESP 18; O2SAT 100
[2023-03-26 16:59] VITALS: BP 133/78; PULSE 83; RESP 18; O2SAT 99
--- NOTE | 2023-03-26 17:10 | ED.GENADULT ---
HPI - General Adult General Chief complaint: Urogenital-Female Stated complaint: flank pain Time Seen by Provider: 03/26/23 14:19 History of Present Illness HPI narrative: Patient is a 37-year-old female who presents ER with right-sided flank pain. Began this morning. No nausea or vomiting. No lower extremity numbness or tingling. Denies trauma. No urinary frequency urgency or dysuria. No history of kidney stones. Patient is on dialysis. She has been taking Tylenol without improvement. Related Data Home Medications Medication Instructions Recorded Confirmed elviteg 150 mg-cob 150 mg-emtricit 1 tablet PO DAILY 09/07/20 11/07/22 200 mg-tenofo alafenam 10 mg tablet (Genvoya) ergocalciferol (vitamin D2) 1,250 1,250 mcg PO MONTHLY 09/07/20 11/07/22 mcg (50,000 unit) capsule furosemide 40 mg tablet (Lasix) 40 mg PO DAILY 09/07/20 11/07/22 sevelamer carbonate 800 mg tablet 800 mg PO TIDWM 09/07/20 11/07/22 amlodipine 10 mg tablet 10 mg PO DAILY 06/30/22 11/07/22 calcitriol 0.5 mcg capsule 0.5 mcg PO DAILY 06/30/22 11/07/22 Allergies Allergy/AdvReac Type Severity Reaction Status Date / Time aspirin Allergy Unknown UNKNOWN Verified 03/26/23 14:02 ciprofloxacin Allergy Unknown UNKNOWN Verified 03/26/23 14:02 RIVERA Inhibitors Allergy Swelling Verified 03/26/23 14:02 of Lip/Tongue/Throat morphine AdvReac Mild Itching Verified 03/26/23 14:02 Review of Systems Constitutional: Constitutional: Denies chills and Denies fever(s) Gastrointestinal: Gastrointestinal: Denies abdominal pain, Denies nausea and Denies vomiting Genitourinary: Genitourinary: Denies hematuria, Denies nocturia, Denies dysuria and Reports flank pain Musculoskeletal: Musculoskeletal: Reports back pain, Denies arthralgias and Denies joint swelling PMF Past Medical History Medical History Cerebrovascular accident End-stage renal disease on peritoneal dialysis Erythropoietin deficiency anemia Human immunodeficiency virus Hypertension Myocardial infarction Renal osteodystrophy Surgical History Surgical History Peritoneal dialysis catheter in place Family History Family History Grandparent Hypertension Social History Social History Social History: Surrogate medical decision maker: Faustina Weston, mother. Code status: Full code. Smoking status: Never smoker Alcohol intake: current Drinks per week: 2 Substance use: current Substance use type: marijuana Lack of Transportation: No Lack of Food: Never True Current Housing: I Have Housing Concerned About Future Housing: No Difficulty Paying Gas/Electric Bills: No Difficulty Paying for Meds: No Currently Unemployed: No Education: High School Diploma/GED Difficulty w/ Childcare or Family Care: No Additional occupation/education comments: Office work. Spiritual care concerns: No Exam Narrative: GENERAL: Well-appearing, well-nourished, and in no acute distress. HEAD: Normocephalic, atraumatic. CHEST: Clear to auscultation. No respiratory distress. HEART: Regular rate and rhythm. Normal peripheral pulses. ABDOMEN: Soft, nontender, nondistended. Back: No midline tenderness to the T/L-spine. There is right-sided paraspinal muscular tenderness at the T8-T10 region. Similar to CVA tenderness as well EXTREMITIES: Normal range of motion. No edema. NEURO: Alert and oriented x3. PSYCH: Normal mood and affect. Course Course Emergency Course: No infection/stone/fracture. Patient appropriate for discharge. Will give muscle relaxers. Vital Signs Vital signs: Vital Signs Temperature 97.5 F L 03/26/23 12:25 Pulse Rate 88 03/26/23 12:25 Respiratory Rate 16 03/26/23 12:25 Blood Pressure 151/85 H 03/26/23 12:25 Puls
== END 2023-03-26 18:01 | disposition home or self-care (01) ==
PROVIDERS: Emergency Provider Emergency Medicine
DX: M54.6 Pain in thoracic spine (principal); I12.0 Hypertensive chronic kidney disease with stage 5 chronic kidney disease or end stage renal disease; N18.6 End stage renal disease; D63.1 Anemia in chronic kidney disease; N25.0 Renal osteodystrophy; I25.2 Old myocardial infarction; Z21 Asymptomatic human immunodeficiency virus [HIV] infection status; Z99.2 Dependence on renal dialysis; Z86.73 Personal history of transient ischemic attack (TIA), and cerebral infarction without residual deficits; Z79.899 Other long term (current) drug therapy
CPT/HCPCS: 74176; 81001; 81025; 99284; A9270